=== PATIENT | male | born 1955 | race Hispanic/Latino ===

== ENCOUNTER 2017-03-11 02:05 | Inpatient (IN) | payer BC, SELFPAY ==
[2017-03-11] MEDS ORDERED: Ondansetron HCl/PF 4 MG/2 ML Vial ONE ×3 (02:33→06:41)
[2017-03-11] MEDS ORDERED: Morphine 4 MG/ML Carpuject ONE ×2 (02:33→03:53)
[2017-03-11] MEDS ORDERED: Nitroglycerin 2% Ointment 1 INCH/1 GM Packet ONE (02:50)
[2017-03-11] MEDS ORDERED: Aspirin 300 MG Suppository ONE (02:56)
[2017-03-11 03:05] LABS: #Eosinphils 0.4 thou/uL (0.0-0.7); #Lymphocytes 2.4 thou/uL (1.20-3.40); #Monocytes 0.5 thou/uL (0.11-0.59); #Neutrophils 6.9 thou/uL (1.40-6.50); %Basophils 0.5 % (0.0-1.0); %Eosinophils 3.8 % (0.0-10.0); %Lymphocytes 23.3 % (21.0-51.0); %Monocytes 4.6 % (0.0-10.0); %Neutrophils 67.9 % (42.0-75.0); Hemoglobin 13.9 g/dL (14.0-18.0); Mean Corpuscular HGB CONC 34.5 g/dL (32.0-36.0); Mean Corpuscular Hemoglobin 31.6 pg (27.0-31.0); Mean Corpuscular Volume 91.7 fl (80.0-94.0); Platelet Count 266 thou/uL (130-400); RBC Distribution Width 11.4 % (11.5-14.5); Red Blood Cell (RBC) Count 4.39 mill/uL (4.70-6.10); White Blood Cell (WBC) Count 10.1 thou/uL (4.8-10.8)
[2017-03-11 03:19] LABS: ALT (SGPT) 14 U/L (8-55); AST (SGOT) 19 U/L (5-34); Albumin 3.7 g/dL (3.4-4.8); Alkaline Phosphatase 62 U/L (40-150); Anion Gap 14 mmol/L (10-20); BUN (Urea Nitrogen) 16 mg/dL (8.4-25.7); Bilirubin, Total 0.4 mg/dL (0.2-1.2); Calc. Creatinine Clearance 0 mL/min (70-130); Calcium 8.8 mg/dL (7.8-10.44); Carbon Dioxide 17 mmol/L (23-31); Chloride 110 mmol/L (98-107); Estimated GFR-MDRD 77; Globulin 3.1 g/dL (2.4-3.5); Glucose 189 mg/dL (80-115); Lipase 28 U/L (8-78); Magnesium 2.1 mg/dL (1.6-2.6); Protein, Total 6.8 g/dL (5.8-8.1); Sodium 137 mmol/L (136-145)
[2017-03-11 03:23] LABS: CKMB 2.8 ng/mL (0-6.6); Troponin I Less than 0.010 ng/mL (< 0.028)
[2017-03-11 03:28] LABS: Prothrombin Time 13.7 SEC (12.0-14.7)
[2017-03-11 03:29] LABS: PTT 27.6 SEC (22.9-36.1)
[2017-03-11] MEDS ORDERED: Metoclopramide HCl 10 MG/2 ML VIAL ONE (03:46)
[2017-03-11] MEDS ORDERED: Metoclopramide HCl 10 MG/2 ML VIAL IVP PRN (07:03)
[2017-03-11] MEDS ORDERED: Ondansetron ODT 8 MG TAB SL PRN (07:03)
[2017-03-11] MEDS ORDERED: Ondansetron ODT 4 MG TAB PO PRN (07:03)
[2017-03-11] MEDS ORDERED: Nitroglycerin 0.4 MG TAB (25 Tab Bottle) PO PRN (07:03)
--- NOTE | 2017-03-11 07:24 | HP-2 ---
DATE OF ADMISSION: 03/11/2017 CODE STATUS: FULL. PRIMARY CARE PHYSICIAN: None. ATTENDING: Dr. Darek Steen. RESIDENT: Dr. Robbins. CHIEF COMPLAINT: Nausea and vomiting. HISTORY OF PRESENT ILLNESS: This is a 61-year-old male with no past medical history who presents to the emergency room by EMS for vomiting and dizziness. The patient was having a really bad headache, nausea and vomiting that woke him up from sleep around 2:00 a.m. He went to the restroom and had bee n vomiting for 20-30 minutes, and started feeling really dizzy, so he laid on the floor of the bathro om. His reports that he was sweating really badly. He also reports that his headache is "hurti ng all over" but he has no vision changes. His nausea and abdominal pain got better after having a b owel movement in the ER. The patient has been having regular bowel movements over the past several d ays, he has not been feeling constipated. The patient did not eat anything abnormal. The patient's ate the same thing as him yesterday and is not feeling sick. In the ER, the patient was given m orphine 4 mg IV x2, Reglan 10 mg IV, aspirin 300 mg per rectum, Nitro-Bid, Zofran 4 mg IV, 1 liter no rmal saline. PAST MEDICAL HISTORY: None. PAST SURGICAL HISTORY: Lithotripsy and right inguinal hernia repair. ALLERGIES: No known drug allergies. MEDICATIONS: None. FAMILY HISTORY: Mom has a DVT and dad has an aneurysm, unknown location. SOCIAL HISTORY: Denies tobacco or drug use. Used to drink 2-3 beers a day, but quit about 17 years ago. Patient is . REVIEW OF SYSTEMS: General: Denies fever. Positive for chills. Eyes: Negative for vision changes or eye pain. ENT: Negative for rhinorrhea, sore throat. Respiratory: Negative for cough, shortne ss of breath. Cardiovascular: Negative for chest pain, edema. Positive for palpitations. Gastroin testinal: Positive for nausea, vomiting, abdominal pain. Negative for diarrhea, constipation. Fabiola tourinary: Negative for dysuria, polyuria. Skin: Negative for rashes, lesions. Musculoskeletal: Negative for pain or tenderness. Neurologic: Negative for weakness, numbness, syncope. PHYSICAL EXAMINATION: VITAL SIGNS: Blood pressure 141/79, pulse 83, respiratory rate 16, temperature 97.6, pulse ox 94% on 2 liters. Current weight 99.79 kilograms. GENERAL: Drowsy, but easy to arouse, oriented x3, no acute distress, obese, appropriately interactiv e. EYES: PERRLA. Extraocular muscles intact. Mild horizontal nystagmus. Conjunctivae within normal l imits. ENT: Nasal mucosa and oropharynx within normal limits. NECK: Supple, no lymphadenopathy. CARDIOVASCULAR: Regular rate and rhythm. No murmurs, gallops. A 2+ radial and pedal pulses. RESPIRATORY: Normal effort, no retractions, clear to auscultation bilaterally. SKIN: Warm, dry. No cyanosis or lesions. ABDOMEN: Soft, nontender to palpation. Hypoactive bowel sounds. No mass or distention. EXTREMITIES: No cyanosis or edema. MUSCULOSKELETAL: Structure, tone within normal limits. NEUROLOGIC: No focal deficits. GCS 15. PSYCHIATRIC: Appropriate. LABORATORY DATA AND IMAGING: WBC 10.1, hemoglobin 13.9, hematocrit 40.2, platelets 266. Sodium 137, potassium 4.0, chloride 110, CO2 17, BUN 16, creatinine 0.99, GFR 77, glucose 189, calcium 8.8, AST 19, ALT 14, alkaline phosphatase 62, total bilirubin 0.4, magnesium 2.1, PT 13.7, INR 1.0, PTT 27.6, CK-MB 2.8, troponin less than 0.01, lipase 28. EKG showed normal sinus rhythm with ST elevation in V [address] depression in V4 and V5. Chest x-ray showed questionable mediastinum. Official read is pending. Head CT showed no acute hemorrhage or mass effect. Mild white matter changes. Officia l read is pending. CT aortic dissection protocol showed no dissection on preliminary read. Abdomina l x-ray showed stool in the rectum, no obstruction or free air. Official read is pending. ASSESSMENT AND PLAN: This is a 61-year-old male presents with: 1. Viral gastroenteritis. The patient has significant nausea, vomiting, and dizziness since 2:00 th is morning. The patient had a bowel movement that relieved some pain in the ED. The patient also morrison s a headache. The patient has a mild acute kidney injury and appears mildly dehydrated status post 1 liter normal saline in ED. Zofran does relieve the nausea some. The patient has some mild horizont al nystagmus on exam that could be a component of benign positional vertigo. We will treat with NS a t 150, meclizine as needed for dizziness, Zofran as needed for nausea, Reglan IV as needed for headac hes as well as Tylenol. We will evaluate further for the cause of dizziness once the patient is more stable and less pain. 2. ST elevation on EKG. Patient is not having any chest pain. There is no elevation of troponin an d CK-MB. Dr. Arita with Cardiology has been consulted and did not think that this was a ST elevatio n myocardial infarction at this time. We appreciate further recommendations from Cardiology. We shu l trend troponins, check fasting lipid panel. Monitor on telemetry. 3. Acute kidney injury. The patient appears mildly dehydrated from nausea, vomiting, and has receiv ed 1 liter normal saline bolus in ED. We will give NS at 150 mL per hour and monitor with repeat BMP in the morning. 4. Venous thromboembolism prophylaxis. Lovenox. DISPOSITION: Observation on telemetry. Symptomatic medications will be provided. History and physical exam as well as management discussed with Dr. Steen.
[2017-03-11 07:30] VITALS: BMI 36.1
[2017-03-11 07:43] LABS: Cardiac Risk 4.9 (Less than 4.5)
[2017-03-11 07:48] LABS: Troponin I 0.012 ng/mL (< 0.028)
[2017-03-11] MEDS ORDERED: Prevnar 13-Val Conj/PF 0.5 ML SYRINGE IM ONE (08:00)
--- NOTE | 2017-03-11 08:04 | CT ---
PRELIMINARY REPORT/[facility]/EMERGENCY AFTER HOURS PROCEDURE: EXAM: CT Head Without Intravenous Contrast CLINICAL HISTORY: 61 years old, male; Signs and symptoms; Dizziness TECHNIQUE: Axial computed tomography images of the head/brain without intravenous contrast. COMPARISON: No relevant prior studies available. FINDINGS: No definite acute skull fracture. Mild mucosal thickening in the maxillary sinuses Included paranasal sinuses otherwise appear essentially clear. No acute intracranial hemorrhage or mass effect. Ventricle size is normal for age. There is very mild, relatively symmetrical decreased attenuation in the periventricular white matter, likely from microvascular disease. No definite acute infarct by CT. MRI could be more sensitive/specific for an acute infarct if clinically indicated. IMPRESSION: No acute intracranial hemorrhage or mass effect. Very mild white matter changes, see above. No definite acute infarct by CT, see above. Thank you for allowing us to participate in the care of your patient. Dictated and Authenticated by: Vinod Rose MD 03/11/2017 3:34 AM Central Time ([place] & [place]) FINAL REPORT NONCONTRAST HEAD CT: HISTORY: Dizziness. Headache. Nausea. COMPARISON: 08/31/12. TECHNIQUE: Noncontrast head CT was performed from the skull base to the skull vertex. FINDINGS: This report is in agreement with the preliminary report by [facility]. No acute intracranial process. POS: [facility]
--- NOTE | 2017-03-11 08:09 | CT ---
PRELIMINARY REPORT/[facility]/EMERGENCY AFTER HOURS PROCEDURE: EXAM: CT Angiography Chest With Intravenous Contrast CLINICAL HISTORY: 61 years old, male; Pain; Chest pain; Type not specified; Abdominal pain; Generalized; Patient HX: R/ O dissection TECHNIQUE: Axial computed tomographic angiography images of the chest with intravenous contrast using pulmonary embolism protocol. CONTRAST: 100 mL of ISOVUE administered intravenously. COMPARISON: No relevant prior studies available. FINDINGS: Pulmonary arteries: Unremarkable. No pulmonary embolism. Aorta: Calcifications in the campos of the aorta and other arteries are consistent with atherosclerosi s. No thoracic aortic aneurysm or dissection is identified. Lungs: Unremarkable. Pleural space: Unremarkable. No significant effusion. No pneumothorax. Heart: There are coronary artery calcifications. Mediastinum: There is a small hiatal hernia. There is a small hiatal hernia. Bones/joints: No acute fracture. No dislocation. Soft tissues: Unremarkable. Lymph nodes: Unremarkable. No enlarged lymph nodes. IMPRESSION: 1. No thoracic aneurysm or dissection identified. 2. No significant abnormality identified. EXAM: CT Angiography Abdomen and Pelvis With Intravenous Contrast CLINICAL HISTORY: 61 years old, male; Pain; Chest pain; Type not specified; Abdominal pain; Generalized; Patient HX: R/ O dissection TECHNIQUE: Axial computed tomographic angiography images of the abdomen and pelvis with intravenous contrast. CONTRAST: 100 mL of ISOVUE administered intravenously. COMPARISON: No relevant prior studies available. FINDINGS: VASCULATURE: Aorta: No thoracic aortic aneurysm or dissection. Celiac trunk and mesenteric arteries: No acute findings. No occlusion or significant stenosis. Renal arteries: No acute findings. No occlusion or significant stenosis. Iliac arteries: No acute findings. No occlusion or significant stenosis. ABDOMEN: Liver: Unremarkable. No mass. Gallbladder and bile ducts: Unremarkable. No calcified stones. No ductal dilation. Pancreas: Unremarkable. No ductal dilation. No mass. Spleen: Unremarkable. No splenomegaly. Adrenals: Unremarkable. No mass. Kidneys and ureters: There are bilateral nonobstructing renal calculi. There is a 2.1 cm probable cys t in the right kidney. Stomach and bowel: Unremarkable. No obstruction. No mucosal thickening. Appendix: The appendix is unremarkable. PELVIS: Bladder: Unremarkable. No mass. Reproductive: Unremarkable as visualized. ABDOMEN and PELVIS: Intraperitoneal space: Unremarkable. No significant fluid collection. No free air. Bones/joints: No acute fracture. No dislocation. Soft tissues: A small hernia in the umbilical area contains fat. Lymph nodes: Unremarkable. No enlarged lymph nodes. IMPRESSION: 1. No abdominal aortic aneurysm or dissection identified. 2. Bilateral nonobstructing renal calculi. Thank you for allowing us to participate in the care of your patient. Dictated and Authenticated by: Kp Styles MD 03/11/2017 5:10 AM Central Time ([place] & [place]) FINAL REPORT CTA CHEST CTA ABDOMEN: HISTORY: Pain, nausea, and vomiting. COMPARISON: None. TECHNIQUE: CT angiogram chest and abdomen following the intravenous administration of contrast per dissection pr otocol. Three-D rendering was provided. FINDINGS/IMPRESSION: Findings and impression are concordant with the preliminary report. POS: [facility]
--- NOTE | 2017-03-11 08:21 | RAD ---
CHEST ONE VIEW: History: Nausea. Comparison: 2012 FINDINGS: Heart size is upper limits of normal although may be sequellae of technique. There is lung hypoinflat ion with vascular crowding. No pneumothorax. No large effusion. IMPRESSION: Lung hypoinflation and vascular crowding and enlargement of the cardiac silhouette. No acute intratho racic abnormality is appreciated. POS: [facility]
--- NOTE | 2017-03-11 08:44 | RAD ---
RADIOGRAPH ABDOMEN ONE VIEW: Date: 03-11-17 Time: 4:11 a.m. History: 61-year-old male with nausea. FINDINGS: The bowel gas pattern is nonobstructive. There are several calculi at several left renal calices. The re are fewer calculi in the right kidney. No evidence of organomegaly. IMPRESSION: 1. No evidence of bowel obstruction. 2. Bilateral nephrolithiasis (calculus of kidney). POS: [facility]
[2017-03-11] MEDS: Sodium Chloride 0.9% 1,000 ML IV SCH ×4 (09:50→21:18)
[2017-03-11] MEDS: Enoxaparin Sodium 40 MG/0.4 ML SYRINGE SC SCH (09:50)
[2017-03-11 10:38] LABS: Troponin I 0.036 ng/mL (< 0.028)
--- NOTE | 2017-03-11 12:23 | ADD-PRG ---
DATE OF SERVICE: 03/11/2017 I have examined Mr. Gasca and I have discussed the H&P with Dr. Robbins. I agree with her assessment and plan. Briefly, Mr. Gasca is a 61-year-old man who became very vertiginous last night after arising from bed. He has significant episodes of nausea and vomiting, and was found "down" by his . EMS was called and he was transported to her our ER. On neurological exam, he has no focal deficits. His head impulse test is normal which, however, can be consistent with a cerebellar stroke. Nystagmus is horizontal only. His Skew test is negative. He is having a severe headache despite a negative head CT. I would recommend proceeding with an MRI to obtain a better view of the cerebellum given that this is a significant headache in a gentleman not prone to headaches accompanied by vertigo. We would also recommend checking a sed rate and CRP. Otherwise, clinically, he is stable though any movement causes vertigo and nausea. ROMAN
[2017-03-11] MEDS ORDERED: ISOVUE-370 76%-LOCM 1 ML ONE (13:41)
[2017-03-11] MEDS: Nitroglycerin 2% Ointment 1 INCH/1 GM Packet TOP SCH ×2 (15:21→21:09)
--- NOTE | 2017-03-11 15:58 | MRI ---
EXAM: BRAIN MRI WITHOUT CONTRAST: HISTORY: Cerebellar stroke. Dizziness. Headache. Nausea. COMPARISON: None. CORRELATION: Noncontrast head CT 03/11/17. TECHNIQUE: Brain MRI is performed without intravenous Gadolinium administration. Multisequential, multiplanar i maging is performed. FINDINGS: No hemorrhage on the axial gradient echo sequence. No parenchymal mass, mass effect, or midline shift. Brain volume is age appropriate. In the cerebru m, cortical anand-white matter differentiation is essentially preserved. The ventricles and sulci are patent and symmetric. There are T2 FLAIR white matter hyperintensities due to chronic small-vessel ischemic change. There is restricted diffusion involving both cerebellar hemispheres, right greater than left. Additi onal areas of restricted diffusion are noted in the medial left occipital and frontal lobes as well a s the bilateral posterior occipital lobes. Multifocal location does raise the possibility of an embo lic phenomenon. Midline brain parenchymal structures are unremarkable. Calvarium has a normal T1 marrow signal inten sity. IMPRESSION: Multifocal infarcts. The cerebral infarcts have a cortical location suggesting embolic phenomenon. The largest infarct is in the right cerebellar hemisphere. POS: [facility]
[2017-03-11] MEDS: Acetaminophen 325 MG TAB PO PRN (18:20)
[2017-03-11] MEDS ORDERED: Ondansetron HCl/PF 4 MG/2 ML Vial IVP PRN (19:23)
--- NOTE | 2017-03-11 20:45 | HP ---
DATE OF ADMISSION: 03/11/2017 CODE STATUS: FULL. PRIMARY CARE PHYSICIAN: Lillie dolan. CHIEF COMPLAINT: Dizziness, new onset. HISTORY OF PRESENT ILLNESS: A 61-year-old male who was found by his approximately 2:00 a.m. after he woke up from sleep, had severe vertigo, went to the bathroom and had marked emesis. found him stooped over the toilet and he had fallen to the side. He was very diaphoretic and EMS was called. He was seen in this emergency room and admitted for further care and evaluation. ALLERGIES: None known. MEDICATIONS: None. SOCIAL HISTORY: He is a nonsmoker, nondrinker. He does have a history of approximately 17 years ago drinking 2-3 beers a day. He has been . This is his third marriage. He has been , currently 27 years. No children from this marriage. He does have 3 siblings from prior marriages. Prior hospitalization, has been admitted 09/2012 with nephrolithiasis. He did have a stent placement. There is a questionable history of having been admitted with a chest pain; however, this is not substantiated by review of [place] records. Prior surgery notable for the cystoscope and stent placement. FAMILY HISTORY: Mother at age 72. She is diabetic. His father at age of 74 due to have heart disease. REVIEW OF SYSTEMS: Constitutional: He has had recent chills and the above-mentioned vertigo and has also complained of a severe frontal headache. Skin: Negative. Psychiatric : Denies any mental illness. Cardiovascular: Questionable evaluation for heart disease, 2012, has been advised to take aspirin daily in the past. He denies any prior heart attack, history of heart murmur or hypertension. Pulmonary: He denied any shortness of breath, recent cough, apnea or lung disease. Gastrointestinal: Recent nausea and vomiting, loose stool. Urological: As above, history of kidney stones with a ureteral stent placement in the past. Neurological: New onset severe frontal headache. He denies any tinnitus, hearing loss, weakness or paresthesias of extremities. Marked vertigo since last night. Musculoskeletal: No degenerative joint disease. No swollen joints. No joint pain. Denies any trauma or broken bones. PHYSICAL EXAMINATION: GENERAL: He is alert, quite somnolent, sitting still in bed. Has marked reproduction of vertigo with rising. His weight is 99.7 kilos. VITAL SIGNS: His temperature is 97.6, blood pressure 141/79, pulse is 83 and regular, respirations are 16, O2 sat on room air is 94%. HEENT: Head is atraumatic, normocephalic. Pupils are reactive. He does have horizontal nystagmus. His throat is adequately hydrated. TMs clear. The patient has vertigo testing cannot rule out central etiology. NECK: Supple, no JVD. CARDIOVASCULAR: Normal sinus rhythm. LUNGS: Clear to auscultation. ABDOMEN: Soft. No guarding, rebound or tenderness. GENITOURINARYA: No hernias. MUSCULOSKELETAL: No swelling. No tenderness. Moves all extremities well. EXTREMITIES: No cyanosis, clubbing or edema. SKIN: Intact. NEUROLOGIC: notable for: As above notable unidirectional horizontal nystagmus.thrust test with fixation does not rule out central etiology no focal signs LABORATORY DATA: WBC 10.1, H&H 13.9 and 40, platelets 266,000. Sodium 134, potassium 4, chloride 110, bicarbonate 17, BUN 16, creatinine 0.99, blood sugar 189. Troponin is 0.01. EKG shows ST elevation in V1, V2. No other ischemic changes. The patient in the emergency room had CT imaging of his head which was a brain CT which was negative for any mass effect hemorrhagic CVA. Chest x- ray is notable for a wide mediastinum. He underwent a CT dissection protocol which was negative. ASSESSMENT: New onset severe headache with vertigo, cannot rule out central etiology. PLAN: The patient will be admitted. Nonspecific ST-T wave changes. He will have serial troponins and have a further diagnostic imaging, rule out a central etiology of new onset severe vertigo and headache. Consider MRI. MTDD
[2017-03-11] MEDS: Atorvastatin Calcium 40 MG TAB PO SCH (21:18)
--- NOTE | 2017-03-12 00:47 | CON ---
DATE OF CONSULTATION: 03/11/2017 REFERRING PHYSICIAN: Dr. Rick Last. REASON FOR CONSULTATION: Cerebellar stroke. HISTORY OF PRESENT ILLNESS: Mr. Gasca is a pleasant 61-year-old male who has been consult ed for evaluation of cerebellar stroke. The patient reports that this morning around 2:00 a.m., he w renetta up to go to bathroom, at that time, he suddenly passed out. Next thing, he knows he is in the em ergency room. He does not recall what transpired the passing out spell. He did not have any chest p ain, no palpitation at that time. He reports that since being here, he has difficulty with getting u p as he tends to get vertigo-type sensation and becomes nauseous. He denies any headache, chest pain , palpitations, lightheadedness, or dizziness. PAST MEDICAL HISTORY: None significant. PAST SURGICAL HISTORY: None significant. SOCIAL HISTORY: He denies smoking or alcohol use. He denies illicit drug use. He is . CURRENT MEDICATIONS: Please review MAR. ALLERGIES: No known drug allergies. FAMILY HISTORY: Noncontributory. REVIEW OF SYSTEMS: As mentioned in the HPI, otherwise negative. PHYSICAL EXAMINATION: VITAL SIGNS: Blood pressure of 128/66, pulse of 78, temperature of 98.7, respirations of 16, O2 sats 95% on room air. GENERAL: Well-developed, well-nourished male in no apparent distress. RESPIRATORY: Clear to auscultation bilaterally. CARDIOVASCULAR: Regular rate and rhythm. NEUROLOGIC: Mental status: The patient is awake, alert, oriented x3. Speech and language: Fluent speech. Cranial nerves: Pupils are 3 mm and reactive. Visual arroyo are intact. Extraocular muscl es are intact. He does have right and gaze horizontal nystagmus. Face appears symmetric. Tongue an d uvula are midline. Motor exam showed normal tone and bulk with a 5/5 strength in both upper and lo wer extremities. Sensation is intact and symmetric. Deep tendon reflexes 2+ reflexes in both upper and lower extremities. Coordination: He has a mild dysmetria noted on [id number] on the rig ht side. LABORATORY DATA: Reviewed, which included CBC, CMP, lipid profile, troponin which is significant for hemoglobin 13.9, hematocrit of 40.2, total cholesterol 185, LDL of 124, HDL of 38, triglycerides ___ __. IMAGING STUDIES: MRI brain without contrast was reviewed, which showed acute right cerebellar ischem ic infarct. IMPRESSION: 1. Acute right cerebellar ischemic infarct. 2. Ataxia, due to #1. ASSESSMENT AND PLAN: Mr. Gasca is a pleasant 61-year-old male who presented with the epis ode of passing out along with the vertigo and ataxia. His exam does show dysmetria on [id number] nger on the right side. His MRI does show acute right cerebellar ischemic infarct. At this time, I would recommend obtaining CT angiogram of the head and neck and echocardiogram. I agree with continu ing on aspirin 325 mg daily for secondary stroke prevention. He will also benefit from Lipitor 40 mg , and continue PT, OT. Thank you for the consultation.
[2017-03-12] MEDS: Nitroglycerin 2% Ointment 1 INCH/1 GM Packet TOP SCH ×3 (05:19→20:20)
[2017-03-12 06:05] LABS: Anion Gap 9 mmol/L (10-20); BUN (Urea Nitrogen) 12 mg/dL (8.4-25.7); Calc. Creatinine Clearance 161 mL/min (70-130); Calcium 8.7 mg/dL (7.8-10.44); Carbon Dioxide 23 mmol/L (23-31); Chloride 112 mmol/L (98-107); Estimated GFR-MDRD Greater than 90; Glucose 96 mg/dL (80-115); Potassium 3.8 mmol/L (3.5-5.1); Sodium 140 mmol/L (136-145)
[2017-03-12] MEDS: Meclizine HCl 12.5 MG TAB PO PRN (08:41)
[2017-03-12] MEDS: Enoxaparin Sodium 40 MG/0.4 ML SYRINGE SC SCH (09:45)
[2017-03-12] MEDS: Aspirin 325 MG TAB PO SCH (09:45)
[2017-03-12] MEDS: Sodium Chloride 0.9% 1,000 ML IV SCH ×2 (09:52→14:47)
--- NOTE | 2017-03-12 11:03 | CT ---
CT ANGIOGRAM OF HEAD CT ANGIOGRAM OF NECK: Date: 03/12/17 HISTORY: Multifocal infarcts noted on recent MRI. Evaluate for carotid and vertebral artery disease. COMPARISON: None. TECHNIQUE: CT angiogram of the head and neck are performed in the axial plane. Sagittal and coronal three-dimens ional reformatted images are submitted for interpretation. FINDINGS: NONCONTRAST HEAD CT: No parenchymal hemorrhage. No extra-axial hematoma. No midline shift. Basilar cisterns are patent. Br ain volume is age-appropriate. Cortical anand-white matter differentiation is preserved in the suprate ntorial brain. There is evidence of hypodensity in the medial right cerebellar hemisphere compatible with area of infarct noted on recent MRI. Calvarium is intact. Adequate aeration of the mastoid air cells. There is sinus disease. Postcontrast head CT does not dem onstrate any abnormal enhancement of the brain parenchyma. There is symmetric attenuation of the optic nerves and ocular rectus muscles. Both ocular lenses are appropriately intact. Retrobulbar fat is preserved. Aerodigestive tract is patent. No mucosal abnormalities. The midline fatty raphe of the tongue is pre served. Evaluation limited by dental amalgam artifact. There is evidence of periodontal disease. Epig lottis has a normal caliber. Preepiglottic fat is preserved. Symmetric attenuation of the submandibul ar glands. Left parotid gland is absent. Right parotid gland is unremarkable. Symmetric attenuation of sternocleidomastoid muscles. Thyroid gland is unremarkable. No evidence of lymphadenopathy by size criteria. Cervical spine demonstrates preservation of vertebral body height. There are varying degrees of centr al canal stenosis and foraminal narrowing. Chronic changes in the lung apices are noted. Focal opacity in the right upper lobe, incompletely jono luated. Nonemergent chest CT. CT ANGIOGRAM: The aortic arch has a normal caliber. There is atherosclerosis of the aortic knob and descending thor acic aorta. Right Carotid: The right carotid artery origin has appropriate enhancement and luminal diameter. The right innominate artery, common carotid artery, carotid bifurcation, and internal carotid artery hav e appropriate enhancement and luminal diameter. Minimal atherosclerotic disease in right carotid bifu rcation. Left Carotid: The left carotid artery origin has appropriate enhancement and luminal diameter. The l eft common carotid artery, carotid bifurcation, and internal carotid artery have appropriate enhancem ent and luminal diameter. There is mild to moderate atherosclerotic disease in the left carotid bifur cation and proximal left internal carotid artery. Limited evaluation of both vertebral artery origins. There may be mild atherosclerotic disease involv ing the origin and proximal aspect of the right vertebral body. Short segment severe stenosis with la ck of contrast enhancement in the proximal right vertebral artery is suggested. The remainder of the right vertebral artery and left vertebral artery are unremarkable. CT ANGIOGRAM [place] [place]: The distal cervical and intracranial internal carotid artery have symmetric enhancement and luminal d iameter. Anterior Circulation: Symmetric enhancement of the A1 segments and proximal A2 segments. There is sh ort segment severe stenosis involving the origin of the right M1 segment. The mid to distal right M1 segment is unremarkable. There is mild irregularity involving the proximal left M1 segment. Mid to di stal left M1 segment is unremarkable. Symmetric enhancement of the proximal MCA distribution. Posterior Circulation: Intracranial vertebral artery have symmetric enhancement and luminal diameter . Left and right PICA artery origins are unremarkable. Basilar artery has appropriate enhancement and luminal diameter. The left and right P1 segments have symmetric enhancement and luminal diameter. IMPRESSION: 1. Severe stenosis involving the origin/proximal right M1 segment. Mild stenosis involving the proxi mal left M1 segment. 2. No significant stenosis of either carotid artery based upon NASCET criteria. 3. Short segment severe stenosis involving the proximal right vertebral artery. POS: OSBALDO
--- NOTE | 2017-03-12 11:58 | PDOC.FM ---
- Subjective Subjective: Pt had no acute events overnight. Reports his dizziness and nausea/vomiting have improved. Denies cp, sob. - Objective Vital Signs & Weight: Vital Signs (12 hours) Temp Pulse Resp BP Pulse Ox 03/12/17 11:52 97.5 F L 74 16 136/72 99 03/12/17 08:00 98.6 F 69 18 139/81 97 03/12/17 03:16 99.2 F 72 16 119/72 96 Weight Weight 117.651 kg I&O: 03/11/17 03/12/17 03/13/17 06:59 06:59 06:59 Intake Total 60 Output Total 120 Balance -60 Result Diagrams: 03/11/17 02:55 03/12/17 05:19 Phys Exam - Physical Examination Constitutional: NAD HEENT: PERRLA Neck: no nodes, no JVD Respiratory: no wheezing, no rales, no rhonchi, clear to auscultation bilateral Cardiovascular: RRR, no significant murmur, no rub Gastrointestinal: soft, non-tender, no distention, positive bowel sounds Musculoskeletal: no edema, pulses present Neurological: non-focal, normal sensation, moves all 4 limbs horizontal nystagmus Psychiatric: normal affect Dx/Plan (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
--- NOTE | 2017-03-12 12:47 | ADD-PRG ---
DATE OF SERVICE: 03/12/2017 This is an addendum to the note of Dr. Rick Last. Mr. Gasca looks and feels much better this morning. His vertigo is improving. His headache has gr eatly improved. He has been seen by the neurologist, who has ordered a CTA of the head and neck. CT A does show severe stenosis involving the origin and proximal segment of the right M1 of the MCA dist ribution. There is also a short segment of severe stenosis involving the proximal right vertebral ar kannan. We have instituted medical management with aspirin and atorvastatin. His blood pressure is we ll controlled. We have instituted PT, OT. Clinically improved.
[2017-03-12] MEDS: Atorvastatin Calcium 40 MG TAB PO SCH (20:20)
[2017-03-13 05:12] LABS: Anion Gap 9 mmol/L (10-20); BUN (Urea Nitrogen) 13 mg/dL (8.4-25.7); Calc. Creatinine Clearance 151 mL/min (70-130); Calcium 8.7 mg/dL (7.8-10.44); Carbon Dioxide 25 mmol/L (23-31); Chloride 110 mmol/L (98-107); Estimated GFR-MDRD Greater than 90; Glucose 87 mg/dL (80-115); Potassium 3.8 mmol/L (3.5-5.1); Sodium 140 mmol/L (136-145)
[2017-03-13] MEDS: Nitroglycerin 2% Ointment 1 INCH/1 GM Packet TOP SCH ×3 (05:39→20:07)
[2017-03-13] MEDS: Aspirin 325 MG TAB PO SCH (08:38)
[2017-03-13] MEDS: Enoxaparin Sodium 40 MG/0.4 ML SYRINGE SC SCH (08:38)
--- NOTE | 2017-03-13 11:26 | PDOC.FM ---
- Subjective Subjective: No acute events overnight. Pt reports he is able to ambulate and nausea, vomiting and dizziness have subsided. He has remained in NSR throughout his time on the monitor. - Objective Vital Signs & Weight: Vital Signs (12 hours) Temp Pulse Resp BP Pulse Ox 03/13/17 08:00 98.3 F 71 18 167/83 H 95 03/13/17 04:00 98.0 F 66 16 146/87 H 95 03/13/17 00:00 98.3 F 70 16 147/81 H 93 L Weight Weight 117.072 kg I&O: 03/12/17 03/13/17 03/14/17 06:59 06:59 06:59 Intake Total 60 595 Output Total 120 850 Balance -60 -255 Result Diagrams: 03/11/17 02:55 03/13/17 04:34 Phys Exam - Physical Examination Constitutional: NAD HEENT: PERRLA, sclera anicteric, oral pharynx no lesions Neck: no nodes, no JVD Respiratory: no wheezing, no rales, no rhonchi, clear to auscultation bilateral Cardiovascular: RRR, no significant murmur, no rub Gastrointestinal: soft, non-tender, no distention, positive bowel sounds Musculoskeletal: no edema, pulses present Neurological: non-focal, normal sensation, moves all 4 limbs CN II-XII intact Psychiatric: normal affect Skin: no rash Dx/Plan (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
[2017-03-13] MEDS ORDERED: Metoclopramide HCl 10 MG TAB PO PRN (11:28)
--- NOTE | 2017-03-13 11:30 | PRG ---
Mr. Gasca looks and feels much better this morning. He is able to ambulate. He is on his aspirin and atorvastatin. We will have a final discussion with Dr. López in anticipating of discharging Mr. Jayna scruggs today. We will try to proceed with an event recorder given the embolic stroke.
[2017-03-13] MEDS ORDERED: Amlodipine 5 MG TAB PO SCH (16:45)
[2017-03-13] MEDS: hydrALAZINE 20 MG/ML VIAL SLOW IVP PRN (18:38)
[2017-03-13] MEDS: Atorvastatin Calcium 40 MG TAB PO SCH (20:06)
[2017-03-13] MEDS ORDERED: Polyethylene Glycol 3350 17 GM Packet PO SCH (21:00)
[2017-03-14] MEDS: hydrALAZINE 20 MG/ML VIAL SLOW IVP PRN ×2 (00:46→19:55)
[2017-03-14] MEDS: Nitroglycerin 2% Ointment 1 INCH/1 GM Packet TOP SCH ×3 (05:31→20:02)
[2017-03-14 05:56] LABS: Anion Gap 12 mmol/L (10-20); BUN (Urea Nitrogen) 12 mg/dL (8.4-25.7); Calc. Creatinine Clearance 153 mL/min (70-130); Calcium 9.4 mg/dL (7.8-10.44); Carbon Dioxide 23 mmol/L (23-31); Chloride 107 mmol/L (98-107); Estimated GFR-MDRD Greater than 90; Glucose 99 mg/dL (80-115); Potassium 3.7 mmol/L (3.5-5.1); Sodium 138 mmol/L (136-145)
--- NOTE | 2017-03-14 06:37 | PDOC.FM ---
- Subjective Subjective: Pt reports having headache and feeling SOB this morning. Denies any chest pain or pain overall. Denies any fever or chills. Reports being a little dizzy this morning. Has not gotten medicine for headache yet at this time. No other concerns at this time. - Objective MAR Reviewed: Yes Vital Signs & Weight: Vital Signs (12 hours) Temp Pulse Resp BP Pulse Ox 03/14/17 04:00 97.9 F 69 16 152/89 H 96 03/14/17 01:15 150/72 H 03/14/17 00:00 98 F 81 20 169/89 H 96 03/13/17 20:20 99.2 F 81 20 96 03/13/17 20:10 79 161/83 H 03/13/17 20:00 99.2 F 81 20 173/77 H 96 03/13/17 19:04 156/81 H 03/13/17 18:38 69 Weight Weight 117.48 kg I&O: 03/12/17 03/13/17 03/14/17 06:59 06:59 06:59 Intake Total 60 595 670 Output Total 120 850 Balance -60 -255 670 Result Diagrams: 03/11/17 02:55 03/14/17 04:57 Radiology Reviewed by me: Yes <Enrrique Baptiste - Last Filed: 03/14/17 07:48> - Objective Vital Signs & Weight: Vital Signs (12 hours) Temp Pulse Resp BP BP Pulse Ox 03/14/17 12:34 152/75 H 03/14/17 11:05 98.3 F 92 18 181/88 H 92 L 03/14/17 08:12 74 130/71 03/14/17 08:00 98.0 F 74 18 98 03/14/17 07:12 98 F 74 20 130/71 98 03/14/17 04:00 97.9 F 69 16 152/89 H 96 Weight Weight 117.48 kg I&O: 03/13/17 03/14/17 03/15/17 06:59 06:59 06:59 Intake Total 595 670 Output Total 850 Balance -255 670 Result Diagrams: 03/11/17 02:55 03/14/17 04:57 <Susan Arreola - Last Filed: 03/14/17 14:01> Phys Exam - Physical Examination Constitutional: NAD HEENT: PERRLA, moist MMs Neck: no nodes, no JVD, supple, full ROM Respiratory: no wheezing, no rales, no rhonchi, clear to auscultation bilateral Cardiovascular: RRR, no significant murmur, no rub Gastrointestinal: soft, non-tender, no distention, positive bowel sounds Musculoskeletal: no edema, pulses present Neurological: non-focal, normal sensation, moves all 4 limbs Lymphatic: no nodes Psychiatric: normal affect, A&O x 3 Skin: no rash, normal turgor, cap refill <2 seconds <Enrrique Baptiste - Last Filed: 03/14/17 07:48> Dx/Plan (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 Has mutliple emboli on CTA -TTE showed normal ef mild diastolic dysfunction and mild MR and TR -Will order IGOR to evaluate for source of multiple emboli -Neurology consulted, appreciate recs -Continue High dose aspirin and started on a Statin -Will continue to work with PT/OT and follow recs HTN -Started on amlodipine. -BP elevated. Will adjust medication at this time <Enrrique Baptiste - Last Filed: 03/14/17 07:48> Attending Addendum - Attending Addendum I personally evaluated the patient and discussed the management with Dr. Baptiste. I agree with the History, Examination, Assessment and Plan documented above with any addition or exceptions noted below. The patient's dizziness has improved with meclizine. Patient's bp meds beingn adjusted. Waiting on IGOR and bubble study on Thursday. <Susan Arreola - Last Filed: 03/14/17 14:01>
[2017-03-14] MEDS: Acetaminophen 325 MG TAB PO PRN (08:12)
[2017-03-14] MEDS: Aspirin 325 MG TAB PO SCH (08:12)
[2017-03-14] MEDS: Enoxaparin Sodium 40 MG/0.4 ML SYRINGE SC SCH (08:13)
[2017-03-14] MEDS ORDERED: Amlodipine 5 MG TAB PO SCH (09:00)
--- NOTE | 2017-03-14 18:07 | EKG ---
Test Reason : Blood Pressure : / mmHG Vent. Rate : 080 BPM Atrial Rate : 080 BPM P-R Int : 154 ms QRS Dur : 100 ms QT Int : 406 ms P-R-T Axes : 056 030 056 degrees QTc Int : 468 ms Normal sinus rhythm ST elevation consider anterior injury or acute infarct ST elevation V1, V2 Abnormal ECG Confirmed by ALYX HILL D.O. ([id number]), book editor CHECO BRADFORD ([id number]) on 03/14/2017 6:07:02 PM Referred By: SERGIO Confirmed By:ALYX HILL D.O.
--- NOTE | 2017-03-14 18:11 | EKG ---
Test Reason : Blood Pressure : / mmHG Vent. Rate : 083 BPM Atrial Rate : 083 BPM P-R Int : 146 ms QRS Dur : 102 ms QT Int : 408 ms P-R-T Axes : 035 033 171 degrees QTc Int : 479 ms Normal sinus rhythm ST elevation consider anterior injury or acute infarct ST elevation V1-V2 ST depresiom V4, V5, I Abnormal ECG No changes Confirmed by ALYX HILL D.O. ([id number]), staff editor CHECO BRADFORD ([id number]) on 03/14/2017 6:11:08 PM Referred By: Confirmed By:ALYX HILL D.O.
[2017-03-14] MEDS: Meclizine HCl 12.5 MG TAB PO PRN (19:53)
[2017-03-14] MEDS: Atorvastatin Calcium 40 MG TAB PO SCH (19:53)
[2017-03-15] MEDS: Nitroglycerin 2% Ointment 1 INCH/1 GM Packet TOP SCH ×3 (05:23→20:52)
[2017-03-15 05:52] LABS: Anion Gap 11 mmol/L (10-20); BUN (Urea Nitrogen) 16 mg/dL (8.4-25.7); Calc. Creatinine Clearance 155 mL/min (70-130); Calcium 9.1 mg/dL (7.8-10.44); Carbon Dioxide 23 mmol/L (23-31); Chloride 108 mmol/L (98-107); Estimated GFR-MDRD Greater than 90; Glucose 95 mg/dL (80-115); Potassium 3.6 mmol/L (3.5-5.1); Sodium 138 mmol/L (136-145)
--- NOTE | 2017-03-15 06:32 | PDOC.FM ---
- Subjective Subjective: Pt reports doing well. Said he slept well overnight. Denies any acute events overnight. Denies any headache or dizziness. denies fever chills. Denies numbness or tingling. Says he got up and walked around yesterday and denies any wobbling or imbalance problems. Denies any other concerns or complaints at this time. - Objective MAR Reviewed: Yes Vital Signs & Weight: Vital Signs (12 hours) Temp Pulse Resp BP Pulse Ox 03/15/17 03:56 92 L 03/15/17 03:50 98.5 F 84 18 167/84 H 94 L 03/14/17 23:53 98.3 F 89 22 H 156/84 H 95 03/14/17 21:15 157/89 H 03/14/17 20:45 98.2 F 78 20 96 03/14/17 20:02 98.2 F 78 20 173/97 H 96 Weight Weight 117.526 kg I&O: 03/13/17 03/14/17 03/15/17 06:59 06:59 06:59 Intake Total 595 670 640 Output Total 850 Balance -255 670 640 Result Diagrams: 03/11/17 02:55 03/15/17 05:06 Radiology Reviewed by me: Yes (No new imaging to review) <Enrrique Baptiste - Last Filed: 03/15/17 07:41> - Objective Vital Signs & Weight: Vital Signs (12 hours) Temp Pulse Resp BP BP Pulse Ox 03/15/17 12:00 98.7 F 75 16 138/85 95 03/15/17 08:43 84 159/84 H 03/15/17 08:00 98.4 F 84 18 159/94 H 97 03/15/17 03:56 92 L 03/15/17 03:50 98.5 F 84 18 167/84 H 94 L Weight Weight 117.526 kg I&O: 03/14/17 03/15/17 03/16/17 06:59 06:59 06:59 Intake Total 670 640 Balance 670 640 Result Diagrams: 03/11/17 02:55 03/15/17 05:06 <Susan Arreola - Last Filed: 03/15/17 13:58> Phys Exam - Physical Examination Constitutional: NAD HEENT: PERRLA, moist MMs Neck: no nodes, no JVD, supple, full ROM Respiratory: no wheezing, no rales, no rhonchi, clear to auscultation bilateral Cardiovascular: RRR, no significant murmur, no rub Gastrointestinal: soft, non-tender, no distention, positive bowel sounds Musculoskeletal: no edema, pulses present Neurological: non-focal, normal sensation, moves all 4 limbs Lymphatic: no nodes Psychiatric: normal affect, A&O x 3 Skin: no rash, normal turgor <Enrrique Baptiste - Last Filed: 03/15/17 07:41> Dx/Plan (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 Has mutliple emboli on CTA -TTE showed normal ef mild diastolic dysfunction and mild MR and TR -MRI shows Embolic nature of stroke, worst sign of infarction in R. cerebellar area.. - IGOR to evaluate for source of multiple emboli -Neurology consulted, appreciate recs -Continue High dose aspirin and started on a Statin -Will continue to work with PT/OT and follow recs -Has graduated to Walking program. Doing well from their standpoint. HTN -Started on amlodipine. -BP elevated. Will continue to adjust medication. <Enrrique Baptiste - Last Filed: 03/15/17 07:41> Attending Addendum - Attending Addendum I personally evaluated the patient and discussed the management with Dr. Baptiste. I agree with the History, Examination, Assessment and Plan documented above with any addition or exceptions noted below. The patient is feeling better. He no longer has a headache or dizziness. Will wait on IGOR with bubble study tomorrow. <Susan Arreola - Last Filed: 03/15/17 13:58>
[2017-03-15] MEDS: Aspirin 325 MG TAB PO SCH (08:43)
[2017-03-15] MEDS: Amlodipine 10 MG TAB PO SCH (08:43)
[2017-03-15] MEDS: Enoxaparin Sodium 40 MG/0.4 ML SYRINGE SC SCH (08:44)
[2017-03-15] MEDS: Atorvastatin Calcium 40 MG TAB PO SCH (20:50)
[2017-03-16 06:00] LABS: Anion Gap 10 mmol/L (10-20); BUN (Urea Nitrogen) 18 mg/dL (8.4-25.7); Calc. Creatinine Clearance 143 mL/min (70-130); Carbon Dioxide 23 mmol/L (23-31); Chloride 109 mmol/L (98-107); Estimated GFR-MDRD 86; Glucose 93 mg/dL (80-115); Potassium 3.8 mmol/L (3.5-5.1); Sodium 138 mmol/L (136-145)
[2017-03-16] MEDS: Nitroglycerin 2% Ointment 1 INCH/1 GM Packet TOP SCH (06:04)
--- NOTE | 2017-03-16 08:25 | PDOC.FM ---
- Subjective Subjective: Patient resting comfortably this AM. He reports that his N/V has improved, but he still feels a little nauseous. He also reports that his dizziness and headache have resolved. He denies any chest pain, SOB. - Objective MAR Reviewed: Yes Vital Signs & Weight: Vital Signs (12 hours) Temp Pulse Resp BP Pulse Ox 03/16/17 07:50 98.5 F 67 14 97 03/16/17 07:13 97.9 F 74 14 149/83 H 95 03/16/17 06:15 98.5 F 67 14 119/82 97 Weight Weight 87.453 kg I&O: 03/15/17 03/16/17 03/17/17 06:59 06:59 06:59 Intake Total 640 540 Balance 640 540 Result Diagrams: 03/11/17 02:55 03/16/17 05:19 <Melonie Robbins - Last Filed: 03/16/17 08:23> - Objective Vital Signs & Weight: Vital Signs (12 hours) Temp Pulse Resp BP BP Pulse Ox 03/16/17 11:10 97.5 F L 84 14 153/86 H 93 L 03/16/17 11:08 97 03/16/17 08:29 67 149/83 H 03/16/17 07:50 98.5 F 67 14 97 03/16/17 07:13 97.9 F 74 14 149/83 H 95 03/16/17 06:15 98.5 F 67 14 119/82 97 Weight Weight 87.453 kg I&O: 03/15/17 03/16/17 03/17/17 06:59 06:59 06:59 Intake Total 640 540 Balance 640 540 Result Diagrams: 03/11/17 02:55 03/16/17 05:19 <Ananth Ocampo - Last Filed: 03/16/17 12:17> Phys Exam - Physical Examination Constitutional: NAD HEENT: moist MMs Respiratory: no wheezing, no rales, no rhonchi, clear to auscultation bilateral Cardiovascular: RRR, no significant murmur, no rub Gastrointestinal: soft, non-tender, no distention, positive bowel sounds Musculoskeletal: no edema, pulses present Neurological: normal sensation, moves all 4 limbs horizontal nystagmus, worse to the right Psychiatric: normal affect, A&O x 3 <Melonie Robbins - Last Filed: 03/16/17 08:23> Dx/Plan (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 Has mutliple emboli on CTA/MRI -TTE showed EF 55-60%, mild diastolic dysfunction and mild MR and TR -MRI shows Embolic nature of stroke, worst sign of infarction in R. cerebellar area. -Neurology consulted, appreciate recs -Continue High dose aspirin and started on a Statin -Will continue to work with PT/OT and follow recs -Has graduated to Walking program. Doing well from their standpoint. -Cardiology has been consulted for IGOR with bubble study and possible loop recorder, appreciate recs. HTN -Started on amlodipine. -Will monitor BP and adjust as needed <Melonie Robbins - Last Filed: 03/16/17 08:23> Attending Addendum - Attending Addendum I personally evaluated the patient and discussed the management with Dr. Robbins. I agree with the History, Examination, Assessment and Plan documented above with any addition or exceptions noted below. Patient doing well symptomatically and is able to ambulate well. We are awaiting possible IGOR with agitated saline study to determine the cause of his embolic CVA. Continue therapy while here, hopeful for discharge in next 1-2 days. Continue ASA and statin. <Ananth Ocampo - Last Filed: 03/16/17 12:17>
[2017-03-16] MEDS: Aspirin 325 MG TAB PO SCH (08:29)
[2017-03-16] MEDS: Amlodipine 10 MG TAB PO SCH (08:29)
[2017-03-16] MEDS: Enoxaparin Sodium 40 MG/0.4 ML SYRINGE SC SCH (08:29)
[2017-03-16] MEDS ORDERED: Nitroglycerin 2% Ointment 1 INCH/1 GM Packet TOP PRN (10:54)
[2017-03-16] MEDS: Atorvastatin Calcium 40 MG TAB PO SCH (20:44)
--- NOTE | 2017-03-16 23:37 | CON ---
DATE OF CONSULTATION: 03/16/2017 CARDIOLOGY CONSULTATION REASON FOR CONSULTATION: Stroke, thought to be possibly embolic. HISTORY OF PRESENT ILLNESS: Mr. Sukhdev Gasca is a very pleasant 61-year-old gentleman, who presente d to the hospital on the with severe nausea associated with some vomiting. He ultimately underw ent the imaging, which showed that he had cerebellar infarcts along with some cerebral infarcts thoug ht to be embolic. We have been consulted about the possibility of this being cardioembolic. There i s no chest pain or pressure, no tightness, or heaviness. There is no syncope or near syncope. The patient is currently doing much better. CURRENT MEDICATIONS: 1. Aspirin. 2. Atorvastatin. 3. Amlodipine. REVIEW OF SYSTEMS: Constitutional: No significant weight gain or loss. Vision: No changes. Heari ng: No changes. Pulmonary: No cough or wheezing. Gastrointestinal: No nausea, vomiting, or diarr hea. Skin: No rashes. Neurologic: No unilateral weakness or numbness. Psychiatric: No unusual d epression or anxiety. Hematologic: No unusual bruising. Genitourinary: No burning with urination. Musculoskeletal: No unusual joint pains. PHYSICAL EXAMINATION: GENERAL: This is a pleasant 61-year-old gentleman, in no distress. VITAL SIGNS: Blood pressure 145/76, pulse 87 and regular. HEENT: Sclerae nonicteric. Mouth mucous membranes moist. NECK: Supple, no lymphadenopathy. LUNGS: Clear. No wheezing, rales, or rhonchi. CARDIAC: Normal S1, normal S2. There is no murmur, rub, or gallop. ABDOMEN: Soft, nontender. EXTREMITIES: No clubbing, no cyanosis. There is no edema. LABORATORY AND X-RAY FINDINGS: EKG sinus rhythm with elevation of the J point in V2 and V1 with some mild ST elevation in those leads. Echocardiogram showed borderline left ventricular hypertrophy, otherwise normal ejection fraction wit h normal study. ASSESSMENT: 1. Probable embolic cerebrovascular accident. 2. Abnormal electrocardiogram? normal variant, need to consider the possibility of Brugada syndrome. PLAN: 1. We will have a transesophageal echo done. 2. Consideration for electrophysiologic evaluation. I will ask Dr. Schultz to see the patient, to see whether implantable loop recorder may be indicated if we do not find an embolic source on the IGOR, in addition likely his opinion on the EKG.
[2017-03-17 05:54] LABS: Anion Gap 10 mmol/L (10-20); BUN (Urea Nitrogen) 21 mg/dL (8.4-25.7); Calc. Creatinine Clearance 97 mL/min (70-130); Calcium 8.9 mg/dL (7.8-10.44); Carbon Dioxide 25 mmol/L (23-31); Chloride 107 mmol/L (98-107); Estimated GFR-MDRD 77; Glucose 99 mg/dL (80-115); Potassium 3.8 mmol/L (3.5-5.1); Sodium 138 mmol/L (136-145)
[2017-03-17] MEDS: Sodium Chloride 0.9% 1,000 ML IV SCH ×2 (06:00→17:57)
--- NOTE | 2017-03-17 07:54 | PDOC.FM ---
- Subjective Subjective: Patient doing well this morning. He reports some continued dizziness when he walks, but states that he is able to ambulate without difficulty and that this has continued to improve. He denies any CP, SOB, weakness, numbness, headache, lightheadedness. - Objective MAR Reviewed: Yes Vital Signs & Weight: Vital Signs (12 hours) Temp Pulse Resp BP Pulse Ox 03/17/17 04:00 97.8 F 85 16 126/80 97 03/16/17 23:23 98.2 F 88 16 129/78 96 Weight Weight 108.409 kg I&O: 03/16/17 03/17/17 03/18/17 06:59 06:59 06:59 Intake Total 540 480 Balance 540 480 Result Diagrams: 03/11/17 02:55 03/17/17 05:17 <Melonie Robbins - Last Filed: 03/17/17 07:53> - Objective Vital Signs & Weight: Vital Signs (12 hours) Temp Pulse Resp BP Pulse Ox 03/17/17 10:36 78 03/17/17 10:02 98.5 F 78 16 155/85 H 94 L 03/17/17 08:00 98.5 F 78 16 03/17/17 04:00 97.8 F 85 16 126/80 97 Weight Weight 108.409 kg I&O: 03/16/17 03/17/17 03/18/17 06:59 06:59 06:59 Intake Total 540 480 Balance 540 480 Result Diagrams: 03/11/17 02:55 03/17/17 05:17 <Ananth Ocampo - Last Filed: 03/17/17 12:13> Phys Exam - Physical Examination Constitutional: NAD HEENT: moist MMs horizontal nystagmus Respiratory: no wheezing, no rales, no rhonchi, clear to auscultation bilateral Cardiovascular: RRR, no significant murmur, no rub Gastrointestinal: soft, non-tender, no distention, positive bowel sounds Musculoskeletal: no edema, pulses present Neurological: non-focal, moves all 4 limbs Psychiatric: normal affect, A&O x 3 <Melonie Robbins - Last Filed: 03/17/17 07:53> Dx/Plan (1) Embolic cerebrovascular disease Code(s): I66.9 - OCCLUSION AND STENOSIS OF UNSPECIFIED CEREBRAL ARTERY Status : Acute (2) HTN (hypertension) Code(s): I10 - ESSENTIAL (PRIMARY) HYPERTENSION Status: Acute QualifierTitle: Hypertension type: essential hypertension Qualified Code( s): I10 - Essential (primary) hypertension (3) Nonsustained supraventricular tachycardia Code(s): I47.1 - SUPRAVENTRICULAR TACHYCARDIA Status: Acute - Plan Plan: Embolic CVA -Pt shows signs of cerebellar stroke. Has multiple emboli on CTA/MRI -TTE showed EF 55-60%, mild diastolic dysfunction and mild MR and TR -MRI shows Embolic nature of stroke, worst sign of infarction in R. cerebellar area. -Neurology consulted, appreciate recs -Continue High dose aspirin and started on a Statin -Will continue to work with PT/OT and follow recs -Has graduated to Walking program. Doing well from their standpoint. -Cardiology has been consulted for IGOR with agitated saline and possible loop recorder, appreciate recs. Non-sustained SVT -Pt had 28 beats of SVT overnight. He was hemodynamically stable and asymptomatic at the time -Cardiology is on board, appreciate recs. -EKG on admission showed ST elevation in V1 and V2, cardiology recommended to consider Brugada syndrome. HTN -Started on amlodipine. -Will monitor BP and adjust as needed <Melonie Robbins - Last Filed: 03/17/17 07:53> Attending Addendum - Attending Addendum I personally evaluated the patient and discussed the management with Dr. Robbins. I agree with the History, Examination, Assessment and Plan documented above with any addition or exceptions noted below. Patient doing well. He underwent IGOR this morning, awaiting report. Per cardiology, he will also have EP eval due to his abnormal EKG, and patient did have episode of SVT overnight. BP well controlled and continues on statin therapy. Continue therapy. Plan is to go home once cleared by cardiology. <Ananth Ocampo - Last Filed: 03/17/17 12:13>
[2017-03-17] MEDS ORDERED: Diprivan 0 ML ONE (08:40)
[2017-03-17] MEDS ORDERED: Diprivan 20 ML ONE (09:02)
--- NOTE | 2017-03-17 10:14 | ECHO ---
TRANSESOPHAGEAL ECHO: HISTORY: This is a 61-year-old gentleman with a CAV. DATE OF PROCEDURE: 03/17/17. PROCEDURE: The patient was taken to the PACU. The patient is sedated by anesthesiology. A transesophageal prob e was placed to the distal esophagus and stomach. Echocardiograms were obtained. Contrast bubble ex am was performed. The transesophageal probe was removed. FINDINGS: 1. Normal left ventricular systolic function. 2. Normal mitral and aortic valves. 3. Mild mitral regurgitation. 4. Mild tricuspid regurgitation. 5. No thrombus is noted in the left atrium or left atrial appendage. 6. No PFO by color Doppler or contrast bubble exam. 7. Atherosclerotic debris in the descending aorta. IMPRESSION: No patent foramen ovale by color Doppler exam or contrast bubble study. POS: OSBALDO
[2017-03-17] MEDS: Aspirin 325 MG TAB PO SCH (10:35)
[2017-03-17] MEDS: Enoxaparin Sodium 40 MG/0.4 ML SYRINGE SC SCH (10:36)
[2017-03-17] MEDS: Amlodipine 10 MG TAB PO SCH (10:36)
[2017-03-17] MEDS ORDERED: Communication Order-Pharmacy FS SCH (18:00)
--- NOTE | 2017-03-17 19:06 | PRG ---
DATE OF SERVICE: 03/17/2017 SUBJECTIVE: Mr. Gasca underwent a transesophageal echo today, which was unrevealing. There was co ncern about the possibility that he had Brugada syndrome. I have asked Dr. Schultz to see him and Dr. Augustus marx said he has Brugada syndrome. The patient also presented initially with nausea, vomiting, actually get the history initially that h jv had syncope, but apparently the patient actually did have a syncopal episode, which brought him to the hospital. OBJECTIVE: VITAL SIGNS: On exam today, the blood pressure 144/80, pulse 75. LUNGS: Clear. CARDIAC: Normal S1, normal S2. LABORATORY DATA AND IMAGING: Reviewing the notes, he had a peak troponin 0.036. The EKG looks normal now. ASSESSMENT: 1. Probable Brugada syndrome. 2. Syncopal episode. PLAN: 1. We will proceed to cardiac catheterization tomorrow to make sure his coronary status prior to the defibrillator implantation. Risks including stroke, heart attack, iodine allergy, loss of blood sup ply to the leg or kidney, stent thrombosis, stent restenosis all discussed. The patient understands and wished to proceed. 2. Probably, we will proceed with defibrillator implantation following that.
[2017-03-17] MEDS: Atorvastatin Calcium 40 MG TAB PO SCH (21:17)
--- NOTE | 2017-03-18 02:58 | CON ---
DATE OF CONSULTATION: 03/17/2017 ELECTROPHYSIOLOGY CONSULTATION REPORT REFERRING PHYSICIAN: Jose Luis Quintero M.D. I am seeing Mr. Gasca at our [facility] Telemetry Floor as an electrophysiologic data integrity consultant. His problems are, 1. Abnormal EKG, typical for type 1 Brugada pattern on presentation, now resolved. 2. Nonsustained ventricular tachycardia on lunchroom monitor. 3. Presentation with syncope. 4. Subacute cerebellar stroke. A. MRI brain showed acute right cerebellar ischemic infarct. 5. No prior history of heart disease or heart attacks. A. A 2D echo from 03/11/2017, showed LVEF 55% to 60%, borderline concentric LVH , moderate left atrial enlargement, mild MR, mild TR B. IGOR on 03/17/2017 reveals no intracardiac clots, mild MR, mild TR, no PFO, normal LVEF. 6. History of hypertension and hyperlipidemia. ALLERGIES: None noted. MEDICATIONS AT HOME: Included none. SUBJECTIVE: Mr. Gasca presented on the after an episode of syncope. He was at his normal usual health while at night walking to the bathroom, he suddenly passed out. He fell on this side, but then his found him stooped over the toilet and had again falling on the left side. He was very diaphoretic and EMS was called. When he woke up, he had severe vertigo. He was also noted to have some headaches. Initial evaluation was revealing an abnormal EKG with downsloping ST elevation in V1. His cardiac enzymes were only borderline changed. CT brain was negative, but brain MRI was suggestive of acute cerebellar stroke. Multifocal embolization were seen suggestive of embolic phenomenon. Since then he is doing better. He now underwent [place] [facility] [place] angiogram demonstrating mid cerebral arterial stenosis in the right M1 segment. While on telemetry last night developed unprovoked nonsustained ventricular tachycardia at 28 beats monomorphic with cycle length about 150 beats per minute. Currently, denies angina or chest pains. No shortness of breath, no fever, chills or cough. No stroke-like symptoms, no neurological deficits. No burning with urination. No bleeding issues, no further neurological deficits. Rest of 12-point system otherwise unremarkable. PAST MEDICAL HISTORY: As above. He has no prior history of heart disease or heart attacks. He never passed out in the past. SOCIAL HISTORY: The patient is a nonsmoker, nondrinker. He is , no children from current marriage. He has 3 children from prior marriages. He has prior history of nephrolithiasis, requiring a ureteral stent. FAMILY HISTORY: Significant for mother dying at age 72. Father dying in age 74 possibly due to chronic heart disease. OBJECTIVE DATA: VITAL SIGNS: Blood pressure 124/80, heart rate 75, respirations 20, temperature 98.7 degrees Fahrenheit. GENERAL: He is alert and oriented man, in no apparent distress. NECK: Supple. Jugular veins are not distended. CHEST: Coarse without crackles. CARDIOVASCULAR: Heart sounds are regular to rate and rhythm. No murmur or gallop. ABDOMEN: Benign. Bowel sounds positive. EXTREMITIES: Lower extremities without edema, clubbing or cyanosis. Pulses are adequate. NEUROLOGIC: The patient is nonfocal. MUSCULOSKELETAL: No joint swelling or deformities. SKIN: Without rash. DATABASE: The EKGs initially revealed a sinus rhythm with a rate of 83 beats per minute. There is RSR pattern seen in V1 with downsloping ST elevation. The J point elevation about 2 mm. The V2 is very similar to V1 as well. No ST- T changes in the rest of the leads. Subsequent EKG from about 2 hours later at 4:54 in the morning is similar. Subsequent EKG from today reveals a sinus rhythm with no J point elevation, some mild QT prolongation at 473 milliseconds. The telemetry strips as above nonsustained VT episodes 28 beats are seen from last night. There seems to be dissociated P waves during the wide complex tachycardia suggestive of ventricular tachycardia. LABORATORY DATA: Most recent sodium 138, potassium 3.8, BUN 21, creatinine 0.9. On presentation, sodium 137, potassium 4, BUN 16, creatinine 0.99, carbon dioxide was 17 though reduced, chloride is 110. White count is 10.1, hemoglobin 13.9, platelet count is 266. INR is 1. Total troponin 0.01, 0.012 and 0.036. ASSESSMENT AND PLAN: Mr. Gasca is a pleasant 61-year-old man with a history of hypertension, but no cardiac history. No prior syncopal spell up until the evening of admission. He also had marked abnormal EKG, which is diagnostic for Brugada syndrome. That was transient though and now resolved. He also ruled into a cerebellar stroke by his MRI. Workup so far did not identify source of emboli by IGOR. He did not have any atrial fibrillation observed on monitor and he had a nonsustained ventricular tachycardia. This gentlemen's prognosis is concerning. His EKG is suggestive of Brugada syndrome, which is oftentimes associated with ventricular tachycardia, but also with paroxysmal atrial fibrillation. His syncopal spell puts him in the symptomatic category. There is a consideration for ICD implant on these people. EP study prior to that could help us to document any sustained arrhythmias as well. The device will also help with further monitoring him for recurrence of the atrial fibrillation in which case anticoagulation likely will be imperative over aspirin and Plavix. I discussed these issues with him. For now, they are somewhat undecided. We will discuss with Dr. Quintero as well and plan to perform at a near date. He recovered well from his recent stroke and has no intracrdiac clots on IGOR. It is reasonable to proceed. Alternative to this is a loop recorder monitor, but naturally that will not provide any protection for him in case of recurrent ventricular or atrial arrhythmias. I had a long discussion with this gentleman about the Brugada syndrome, also he asked me to call his , for whom I also explained these issues. Risks and benefits of the proposed EP study and ICD implantation procedure were all discussed. They understand risk of infection, bleeding, pneumothorax, tamponade , lead dislodgement, device malfunctions, inappropriate shocks were considered for tomorrow. Thank you again for allowing me to participate in the care of this patient. ROMAN
[2017-03-18] MEDS ORDERED: Diazepam 5 MG TAB PO SCH (03:00)
[2017-03-18 06:18] LABS: Anion Gap 11 mmol/L (10-20); BUN (Urea Nitrogen) 18 mg/dL (8.4-25.7); Calc. Creatinine Clearance 143 mL/min (70-130); Calcium 8.6 mg/dL (7.8-10.44); Carbon Dioxide 24 mmol/L (23-31); Chloride 108 mmol/L (98-107); Estimated GFR-MDRD Greater than 90; Glucose 79 mg/dL (80-115); Potassium 3.7 mmol/L (3.5-5.1); Sodium 139 mmol/L (136-145)
[2017-03-18] MEDS: Sodium Chloride 0.9% 1,000 ML IV SCH ×2 (06:30→20:40)
--- NOTE | 2017-03-18 08:25 | PDOC.FM ---
- Subjective Subjective: Patient doing well this AM. No significant overnight events. Explained plan for today regarding cardiac catheterization per Dr. Quintero. Patient is on board with plan. He has been working with PT and states that his gait has improved. He is feeling well and denies any chest pain, shortness of breath, N/V, or dizziness. - Objective MAR Reviewed: Yes Vital Signs & Weight: Vital Signs (12 hours) Temp Pulse Resp BP Pulse Ox 03/18/17 07:15 97.5 F L 74 18 143/89 H 99 03/18/17 04:30 98.3 F 74 16 135/79 94 L 03/18/17 01:06 98.4 F 77 16 140/76 96 Weight Weight 107.955 kg I&O: 03/17/17 03/18/17 03/19/17 06:59 06:59 06:59 Intake Total 480 780 Balance 480 780 Result Diagrams: 03/11/17 02:55 03/18/17 04:20 EKG Reviewed by me: Yes Radiology Reviewed by me: Yes <Winter Bashir - Last Filed: 03/18/17 08:24> - Objective Vital Signs & Weight: Vital Signs (12 hours) Temp Pulse Resp BP Pulse Ox 03/18/17 11:20 97.9 F 65 18 144/78 H 90 L 03/18/17 07:15 97.5 F L 74 18 143/89 H 99 03/18/17 04:30 98.3 F 74 16 135/79 94 L 03/18/17 01:06 98.4 F 77 16 140/76 96 Weight Weight 107.955 kg I&O: 03/17/17 03/18/17 03/19/17 06:59 06:59 06:59 Intake Total 480 780 Balance 480 780 Result Diagrams: 03/11/17 02:55 03/18/17 04:20 <Ananth Ocampo - Last Filed: 03/18/17 12:00> Phys Exam - Physical Examination Constitutional: NAD HEENT: moist MMs Neck: supple Respiratory: no wheezing, no rales, no rhonchi, clear to auscultation bilateral Cardiovascular: RRR, no significant murmur Gastrointestinal: soft, no distention, positive bowel sounds Musculoskeletal: no edema Neurological: non-focal Psychiatric: A&O x 3 Skin: no rash, cap refill <2 seconds <Winter Bashir - Last Filed: 03/18/17 08:24> Dx/Plan (1) Brugada syndrome Code(s): I49.8 - OTHER SPECIFIED CARDIAC ARRHYTHMIAS Status: Acute (2) Embolic cerebrovascular disease Code(s): I66.9 - OCCLUSION AND STENOSIS OF UNSPECIFIED CEREBRAL ARTERY Status : Acute (3) HTN (hypertension) Code(s): I10 - ESSENTIAL (PRIMARY) HYPERTENSION Status: Chronic QualifierTitle: Hypertension type: essential hypertension Qualified Code( s): I10 - Essential (primary) hypertension (4) Nonsustained supraventricular tachycardia Code(s): I47.1 - SUPRAVENTRICULAR TACHYCARDIA Status: Resolved - Plan Plan: Embolic CVA -Pt shows signs of cerebellar stroke. Has multiple emboli on CTA/MRI -TTE showed EF 55-60%, mild diastolic dysfunction and mild MR and TR -MRI shows Embolic nature of stroke, worst sign of infarction in R. cerebellar area. -Neurology consulted, appreciate recs -Continue High dose aspirin and started on a Statin -Will continue to work with PT/OT and follow recs -Has graduated to Walking program. Doing well from their standpoint. -IGOR negative for vegetations or other abnormal findings Non-sustained SVT -Resolved. Hemodynamically stable. -Appreciate cardiology recommendations -EKG on admission showed ST elevation in V1 and V2, cardiology recommended to consider Brugada syndrome. -EP consulted; Dr. Schultz recommended possible EP study and placement of defibrillator HTN -Started on amlodipine. -Will monitor BP and adjust as needed -BP this AM 133/79 Brugada Syndrome -Dr. Schultz, EP, consulted; appreciate recs -Cardiac catheterization today per Dr. Quintero to ensure heart is in good condition before ICD is placed -Eventual placement of ICD due to concerns for vtach and pAfib resulting from Brugada syndrome -Diagnosis explained to patient in detail by Dr. Schultz <Winter Bashir - Last Filed: 03/18/17 08:24> Attending Addendum - Attending Addendum I personally evaluated the patient and discussed the management with Dr. Bashir. I agree with the History, Examination, Assessment and Plan documented above with any addition or exceptions noted below. Patient is s/p heart cath and is supposed to go for AICD placement this afternoon. Symptoms well controlled. No telemetry issues overnight. Further dispo per Cardiology/EP. <Ananth Ocampo - Last Filed: 03/18/17 12:00>
[2017-03-18] MEDS ORDERED: Midazolam HCl 2 mg/2 ml Vial ONE ×2 (08:37→17:07)
[2017-03-18] MEDS ORDERED: Fentanyl 100 MCG/2 ML VIAL ONE ×2 (08:37→17:08)
[2017-03-18] MEDS ORDERED: Acetaminophen/Codeine 30-300mg Tablet PO PRN ×2 (09:15)
[2017-03-18] MEDS ORDERED: Sodium Chloride 0.9% 200 ML IV SCH (09:15)
[2017-03-18] MEDS ORDERED: traMADol HCl 50 MG TAB PO PRN ×2 (09:15→21:24)
[2017-03-18] MEDS ORDERED: Nitroglycerin 0.4 MG TAB (25 Tab Bottle) SL PRN ×2 (09:15→21:24)
[2017-03-18] MEDS: Amlodipine 10 MG TAB PO SCH (12:29)
[2017-03-18] MEDS: Aspirin 325 MG TAB PO SCH (12:29)
[2017-03-18] MEDS ORDERED: Propofol 500 MG/50 ML VIAL ONE (17:08)
[2017-03-18] MEDS ORDERED: CEFAZOLIN/Water 2 GM/20 ML SYRINGE ONE (17:46)
[2017-03-18] MEDS ORDERED: Lidocaine 1% (PF) 30 ML VIAL ONE (18:02)
[2017-03-18] MEDS: Atorvastatin Calcium 40 MG TAB PO SCH (20:35)
[2017-03-18] MEDS ORDERED: Bisacodyl 5 MG TAB PO PRN (21:24)
[2017-03-18] MEDS ORDERED: diphenhydrAMINE 25 MG CAP PO PRN (21:24)
[2017-03-18] MEDS ORDERED: Ondansetron HCl/PF 4 MG/2 ML Vial IVP PRN (21:24)
[2017-03-18] MEDS ORDERED: Acetaminophen 325 MG TAB PO PRN (21:24)
[2017-03-18] MEDS ORDERED: Temazepam 15 MG CAP PO PRN (21:24)
[2017-03-18] MEDS ORDERED: Bisacodyl 10 MG SUPP PR PRN (21:24)
[2017-03-18] MEDS ORDERED: Mag-Al 1200 mg/1200 mg/30 ML UDCUP PO PRN (21:24)
[2017-03-18] MEDS ORDERED: Silver Sulfadiazine 1% Cream 50 GM JAR TOP PRN (21:24)
[2017-03-18] MEDS: Cephalexin 250 MG CAP PO SCH (23:49)
[2017-03-19 06:22] LABS: Anion Gap 12 mmol/L (10-20); BUN (Urea Nitrogen) 12 mg/dL (8.4-25.7); Calc. Creatinine Clearance 158 mL/min (70-130); Calcium 8.5 mg/dL (7.8-10.44); Carbon Dioxide 21 mmol/L (23-31); Chloride 108 mmol/L (98-107); Estimated GFR-MDRD Greater than 90; Glucose 75 mg/dL (80-115); Potassium 3.6 mmol/L (3.5-5.1); Sodium 137 mmol/L (136-145)
[2017-03-19] MEDS: Cephalexin 250 MG CAP PO SCH (06:37)
--- NOTE | 2017-03-19 08:16 | PDOC.FM ---
- Subjective Subjective: Patient doing well this AM. He tolerated cardiac cath and AICD placement without complications. He has some pain at the surgical site, but no pain at the site of the catheter insertion. The pain is well controlled with tylenol # 3. He denies CP, SOB, difficulty walking, dizziness, nausea, vomiting. - Objective MAR Reviewed: Yes Vital Signs & Weight: Vital Signs (12 hours) Temp Pulse Resp BP Pulse Ox 03/19/17 07:18 99.2 F 76 20 140/74 96 03/19/17 04:13 98.1 F 78 16 141/89 H 97 03/19/17 00:00 98.1 F 76 16 139/85 95 03/18/17 21:28 98.2 F 69 18 Weight Weight 113.443 kg I&O: 03/18/17 03/19/17 03/20/17 06:59 06:59 06:59 Intake Total 780 1865 Output Total 600 Balance 780 1265 Result Diagrams: 03/11/17 02:55 03/19/17 04:21 <Melonie Robbins - Last Filed: 03/19/17 08:13> - Objective Vital Signs & Weight: Vital Signs (12 hours) Temp Pulse Resp BP Pulse Ox 03/19/17 09:02 76 03/19/17 08:16 99.2 F 76 20 98 03/19/17 07:18 99.2 F 76 20 140/74 96 03/19/17 04:13 98.1 F 78 16 141/89 H 97 03/19/17 00:00 98.1 F 76 16 139/85 95 Weight Weight 113.443 kg I&O: 03/18/17 03/19/17 03/20/17 06:59 06:59 06:59 Intake Total 780 1865 Output Total 600 Balance 780 1265 Result Diagrams: 03/11/17 02:55 03/19/17 04:21 <Ananth Ocampo - Last Filed: 03/19/17 11:03> Phys Exam - Physical Examination Constitutional: NAD HEENT: moist MMs Respiratory: no wheezing, no rales, no rhonchi, clear to auscultation bilateral Cardiovascular: RRR, no significant murmur, no rub Gastrointestinal: soft, non-tender, no distention, positive bowel sounds Musculoskeletal: no edema, pulses present Neurological: non-focal, moves all 4 limbs Psychiatric: normal affect, A&O x 3 Deviation from normal: incision c/d/i <Melonie Robbins - Last Filed: 03/19/17 08:13> Dx/Plan (1) Embolic cerebrovascular disease Code(s): I66.9 - OCCLUSION AND STENOSIS OF UNSPECIFIED CEREBRAL ARTERY Status : Acute (2) Brugada syndrome Code(s): I49.8 - OTHER SPECIFIED CARDIAC ARRHYTHMIAS Status: Acute (3) HTN (hypertension) Code(s): I10 - ESSENTIAL (PRIMARY) HYPERTENSION Status: Chronic QualifierTitle: Hypertension type: essential hypertension Qualified Code( s): I10 - Essential (primary) hypertension (4) Nonsustained supraventricular tachycardia Code(s): I47.1 - SUPRAVENTRICULAR TACHYCARDIA Status: Resolved - Plan Plan: Embolic CVA -Pt shows signs of cerebellar stroke. Has multiple emboli on CTA/MRI -TTE showed EF 55-60%, mild diastolic dysfunction and mild MR and TR -MRI shows Embolic nature of stroke, worst sign of infarction in R. cerebellar area. -Neurology consulted, appreciate recs -Continue High dose aspirin and started on a Statin -Will continue to work with PT/OT and follow recs -Has graduated to Walking program. Doing well from their standpoint. -IGOR negative for vegetations or other abnormal findings Brugada Syndrome -Dr. Schultz, EP, consulted; appreciate recs -s/p Cardiac catheterization on 03/18 to ensure heart in good condition prior to ICD placement - showed RCA with 30% plaque and tortuous vessel, Dr. Quintero recommended medical management -s/p ICD placement on 03/18 due to concerns for vtach and pAfib resulting from Brugada syndrome Non-sustained SVT -Resolved. Hemodynamically stable. This was likely 2/2 to Brugada syndrome -Appreciate cardiology recommendations -EKG on admission showed ST elevation in V1 and V2 -EP consulted; Dr. Schultz HTN -Started on amlodipine. -Will monitor BP and adjust as needed -BP has been elevated, however the patient's amlodipine was held for his procedures yesterday. <Melonie Robbins - Last Filed: 03/19/17 08:13> Attending Addendum - Attending Addendum I personally evaluated the patient and discussed the management with Dr. Robbins. I agree with the History, Examination, Assessment and Plan documented above with any addition or exceptions noted below. Patient doing well after heart cath and AICD placement yesterday. He has been cleared for discharge and will be going home later today. <Ananth Ocampo R - Last Filed: 03/19/17 11:03>
[2017-03-19] MEDS: Amlodipine 10 MG TAB PO SCH (09:02)
[2017-03-19] MEDS: Aspirin 325 MG TAB PO SCH (09:02)
[2017-03-19] MEDS: Sodium Chloride 0.9% 1,000 ML IV SCH (09:03)
--- NOTE | 2017-03-19 09:11 | RAD ---
PORTABLE UPRIGHT FRONTAL CHEST RADIOGRAPH: Date: 03-19-17 Comparison: 03-11-17 History: Pacemaker placement. FINDINGS: There is a dual-lead left sided AICD, with leads overlying the region of the right atrium and right v entricle. There is no pneumothorax, pleural fluid, focal consolidation or alveolar edema. There is pr ominence of the cardiac silhouette. IMPRESSION: Dual-lead transvenous pacer in place. No acute findings. POS: RAMU
[2017-03-19] MEDS ORDERED: Atorvastatin Calcium 40 MG TAB PO SCH ×2 (09:22→21:00)
--- NOTE | 2017-03-19 09:43 | PRG ---
DATE OF SERVICE: 03/19/2017 Mr. Gasca is doing well, no complaints of chest pain or pressure. PHYSICAL EXAMINATION: VITAL SIGNS: Blood pressure 140/70, pulse 76. LUNGS: Clear. CARDIAC: Normal S1 and S2. Heart catheterization yesterday revealed mild plaque in the right coronary, 30% plaque. ASSESSMENT: 1. Brugada syndrome, status post defibrillator implantation. 2. Mild coronary disease. 3. Hypertension. PLAN: 1. Amlodipine 5 mg a day. 2. Aspirin 81 mg a day. 3. Atorvastatin 40 mg a day. 4. To see me in the office in about a month.
[2017-03-19 11:22] VITALS: BP 136/89; TEMP 98.8
--- NOTE | 2017-03-19 18:08 | PRG ---
DATE OF SERVICE: 03/19/2017 SUBJECTIVE: Mr. Gasca is doing well one day after ICD implant. OBJECTIVE: VITAL SIGNS: The blood pressure is 136/89, heart rate 93, respirations 20, temperature 98.8 degrees Fahrenheit. GENERAL: Alert and oriented man in no apparent distress. NECK: Supple. No crackles. HEART: Regular rate and rhythm. No murmur or gallop. ABDOMEN: Benign. Bowel sounds positive. EXTREMITIES: Lower extremities without edema, clubbing or cyanosis. Left precordial ICD insertion site is well healed. DATABASE: Telemetry strips reveals sinus rhythm. No significant arrhythmias. LABORATORY DATA: The chest x-ray from this morning reveals no pneumothorax. Interrogation of the ICD has adequate function. It is a dual-chamber device with adequate fx.. He is doing well one day post-implant. 2 week wound check. [facility]AMPUSOsbaldo
[2017-03-20] MEDS ORDERED: Amlodipine 5 MG TAB PO SCH (09:00)
--- NOTE | 2017-03-20 23:26 | DIS-2 ---
DATE OF ADMISSION: 03/11/2017 DATE OF DISCHARGE: 03/19/2017 ADMITTING RESIDENT: Melonie Robbins MD DISCHARGE RESIDENT: Melonie Robbins MD ADMITTING ATTENDING: Haider Osorio MD DISCHARGE ATTENDING: Ananth Ocampo MD CONSULTATIONS: 1. Florecita Pedraza M.D. with Neurology. 2. Jose Luis Quintero M.D. with Cardiology. 3. Bam Schultz M.D. with EP. PROCEDURES: 1. A transesophageal echo done on 03/17/2017 that showed normal systolic function, no thrombus in th e left atrium, normal bubble exam with no patent foramen ovale, and atherosclerotic debris in the owen cending aorta. 2. Cardiac catheterization on 03/18/2017 that showed ejection fraction of 60% in RCA with 30% plaque in tortuous vessel. 3. ICD placement on 03/18/2017. IMAGIN. Abdomen x-ray showed no evidence of bowel obstruction and bilateral nephrolithiasis. 2. Chest x-ray showed lung hypoinflation and vascular crowding and enlargement of the cardiac silhou ette. No acute intrathoracic abnormality is appreciated. 3. Brain CT showed no acute intracranial hemorrhage or mass effect, very mild white matter changes. No definite acute infarct by CT. 4. CT dissection showed no abdominal aortic aneurysm or dissection as well as bilateral nonobstructi ng renal calculi. 5. Transthoracic echocardiogram showed left ventricular ejection fraction of 55-60%, borderline left ventricular hypertrophy, E:A flow reversal suggestive of diastolic dysfunction. 6. Brain MRI showed multifocal infarcts, cerebral infarcts have a cortical location suggesting embol ic phenomenon. The largest infarct is in the right cerebellar hemisphere. 7. CT angiography showed severe stenosis involving the origin/proximal right M1 segment and mild rebecca nosis involving the proximal left M1 segment. No significant stenosis of either carotid artery and s hort segment severe stenosis involving the proximal right vertebral artery. PRIMARY DIAGNOSES: 1. Acute cerebellar cerebrovascular accident. 2. Brugada syndrome. 3. Nonsustained supraventricular tachycardia. SECONDARY DIAGNOSIS: Hypertension. DISCHARGE MEDICATIONS: 1. Acetaminophen with codeine 300/30 mg 1 tablet p.o. q.4 hours p.r.n. pain. 2. Amlodipine 5 mg p.o. daily. 3. Aspirin 81 mg p.o. daily. 4. Atorvastatin 40 mg p.o. at bedtime. 5. Keflex 500 mg p.o. q.6 hours, dispense #38. 6. [facility] p.o. daily. DISCONTINUED MEDICATIONS: None. HOSPITAL COURSE: This is a 61-year-old male with no significant past medical history, who presented to the ED complaining of headache and dizziness as well as nausea and vomiting. The patient was foun d to have bilateral horizontal nystagmus and an MRI was done which showed several embolic appearing a cute CVAs. Dr. Pedraza with Neurology was consulted and the patient was started on aspirin, atorvastati n, and the source of the stroke was worked up with a CTA and TTE. As patient's CVAs appeared embolic even though there was no new thrombus seen on the TTE, a Cardiology consult was made for a IGOR. Car diology came to see the patient and evaluated the patient's EKG and felt that the patient needed to b e worked up for potentially having Brugada syndrome. The patient overnight that night went into nons ustained SVT and had 28 beats of SVT. The patient during that time was asymptomatic and had normal v ital signs and was hemodynamically stable. EP was consulted for potential ICD placement and EP felt also that this patient met criteria for Brugada syndrome and counseled the patient on the risks and b enefits of ICD placement and the patient elected to move forward with getting ICD. The patient had a cardiac catheterization done first to determine the status of his heart at this time. This showed t hat he has 30% plaque in his RCA, but otherwise no significant stenosis. The patient received his IC D in the same day. The patient had no complications postop. The patient was counseled that he would be unable to drive for the next 6 months and at the time of discharge, the patient's EKG no longer s howed any ST changes or arrhythmias. The patient also improved from dizziness standpoint, he worked with PT and was able to graduate to the walking program and by the time of discharge was able to walk without any difficulties. He was discharged though with outpatient physical therapy for the outpati ent dizziness program to help with any continued issues with dizziness moving forward. DISPOSITION: Stable. DISCHARGE INSTRUCTIONS: 1. Location: Home. 2. Diet: Heart healthy. 3. Activity: Orthopedic limitations with the left arm and sling for 1 week due to ICD placement and no driving for 6 months. 4. Follow up with Dr. Leon within 3-4 weeks and establish with [facility] as your PCP within 1 -2 weeks.
== END 2017-03-19 12:56 | disposition home or self-care (01) | DRG 242 ==
LOC: ERS 02:05 → 2SW 05:14 → OBSVTOIN 05:14 → 2SE 21:07
PROVIDERS: ADMIT Family Medicine; ATTEND Family Medicine
PROC: B030ZZZ Magnetic Resonance Imaging (MRI) of Brain (ICD-10-PCS; 2017-03-11)
PROC: 0JH606Z Insertion of Pacemaker, Dual Chamber into Chest Subcutaneous Tissue and Fascia, Open Approach (ICD-10-PCS; principal; 2017-03-18)
PROC: B2111ZZ Fluoroscopy of Multiple Coronary Arteries using Low Osmolar Contrast (ICD-10-PCS; 2017-03-18)
PROC: B2151ZZ Fluoroscopy of Left Heart using Low Osmolar Contrast (ICD-10-PCS; 2017-03-18)
PROC: 02H63JZ Insertion of Pacemaker Lead into Right Atrium, Percutaneous Approach (ICD-10-PCS; 2017-03-18)
PROC: 02HK3JZ Insertion of Pacemaker Lead into Right Ventricle, Percutaneous Approach (ICD-10-PCS; 2017-03-18)
PROC: 4A023N7 Measurement of Cardiac Sampling and Pressure, Left Heart, Percutaneous Approach (ICD-10-PCS; 2017-03-18)
DX: I47.1 Supraventricular tachycardia (principal); I63.9 Cerebral infarction, unspecified; N17.9 Acute kidney failure, unspecified; E86.0 Dehydration; A08.4 Viral intestinal infection, unspecified; I49.8 Other specified cardiac arrhythmias; I10 Essential (primary) hypertension; E78.5 Hyperlipidemia, unspecified; R27.0 Ataxia, unspecified; Z95.810 Presence of automatic (implantable) cardiac defibrillator; Z82.49 Family history of ischemic heart disease and other diseases of the circulatory system; Z83.3 Family history of diabetes mellitus
CPT/HCPCS: 33249; 36005; 36415; 70450; 70496; 70498; 70551; 71045; 71275; 74018; 75820; 76942; 80048; 80053; 80061; 82553; 83690; 83735; 84484; 85025; 85610; 85652; 85730; 86140; 93005; 93010; 93306; 93312; 93458; 93641; 93798; 94760; 96365; 96375; 96376; 99152; 99153; A4216; C1721; C1769; C1777; C1898; G8978-GP-CI; G8979-GP-CI; G8980-GP-CI; G8987-GO-CK; G8988-GO-CI; G8996-GN-CH; G8997-GN-CH; G8998-GN-CH; J0360; J1644; J1650; J2001; J2250; J2270; J2405; J2704; J2765; J3010; J3490; Q0162

== ENCOUNTER 2017-03-23 18:40 | Inpatient (IN) | payer OTHER, SELFPAY ==
[~2017-03-23 18:40] MED LIST: Glycopyrrolate 0.2 MG/ML 5 ML SYRINGE ONE; ISOVUE-370 76%-LOCM 1 ML ONE; Lidocaine 1% PF 5 ML VIAL ONE; PHENYLEPHRINE-NS 100 MCG/ML 10 ML SYRINGE ONE; PROPOFOL 200 MG/20 ML VIAL ONE; Succinylcholine Chloride 20 MG/ML 10 ml SYRINGE FS ONE; ePHEDrine/0.9% NaCl/PF SYRINGE 50 mg/10 ml ONE
[2017-03-23] MEDS ORDERED: Lorazepam 2 MG/ML VIAL ONE (18:57)
[2017-03-23 19:17] LABS: #Basophils 0.1 thou/uL (0.0-0.2); #Eosinphils 0.5 thou/uL (0.0-0.7); #Lymphocytes 3.3 thou/uL (1.20-3.40); #Monocytes 0.8 thou/uL (0.11-0.59); #Neutrophils 7.8 thou/uL (1.40-6.50); %Basophils 0.7 % (0.0-1.0); %Eosinophils 3.9 % (0.0-10.0); %Lymphocytes 26.8 % (21.0-51.0); %Neutrophils 62.7 % (42.0-75.0); Hemoglobin 13.4 g/dL (14.0-18.0); Mean Corpuscular HGB CONC 34.6 g/dL (32.0-36.0); Mean Corpuscular Hemoglobin 32.1 pg (27.0-31.0); Mean Corpuscular Volume 92.7 fl (80.0-94.0); Mean Platelet Volume 7.2 fL (7.4-10.4); Platelet Count 263 thou/uL (130-400); RBC Distribution Width 11.5 % (11.5-14.5); Red Blood Cell (RBC) Count 4.17 mill/uL (4.70-6.10); White Blood Cell (WBC) Count 12.5 thou/uL (4.8-10.8)
[2017-03-23 19:31] LABS: INR-International Normal Ratio 1.1; PTT 29.3 SEC (22.9-36.1)
[2017-03-23 19:32] LABS: ALT (SGPT) 21 U/L (8-55); AST (SGOT) 24 U/L (5-34); Albumin 3.8 g/dL (3.4-4.8); Alkaline Phosphatase 89 U/L (40-150); Anion Gap 13 mmol/L (10-20); BUN (Urea Nitrogen) 18 mg/dL (8.4-25.7); Bilirubin, Total 0.6 mg/dL (0.2-1.2); CK (CPK) 94 U/L (30-200); Calc. Creatinine Clearance 0 mL/min (70-130); Calcium 9.2 mg/dL (7.8-10.44); Carbon Dioxide 24 mmol/L (23-31); Chloride 105 mmol/L (98-107); D-Dimer Test 1.34 *mcg/mL (0.27-0.43); Estimated GFR-MDRD 50; Globulin 2.9 g/dL (2.4-3.5); Glucose 163 mg/dL (80-115); Lipase 57 U/L (8-78); Potassium 3.3 mmol/L (3.5-5.1); Protein, Total 6.7 g/dL (5.8-8.1); Sodium 139 mmol/L (136-145)
[2017-03-23 19:37] LABS: Troponin I Less than 0.010 ng/mL (< 0.028)
[2017-03-23] MEDS ORDERED: Fentanyl 100 MCG/2 ML VIAL ONE ×4 (19:49→22:57)
[2017-03-23] MEDS ORDERED: Rocuronium Bromide 50 MG/5 ML VIAL ONE (19:54)
[2017-03-23] MEDS ORDERED: Ondansetron HCl/PF 4 MG/2 ML Vial ONE (20:15)
--- NOTE | 2017-03-23 20:15 | RAD ---
PORTABLE CHEST: History: Chest pain Comparison: 03-11-17 FINDINGS/IMPRESSION: Mild cardiomegaly is stable. Mild vascular engorgement is stable. No acute interval change noted. Pac emaker leads have been placed since prior exam. POS: [facility]
--- NOTE | 2017-03-23 20:24 | CT ---
CT HEAD WITHOUT CONTRAST: Technique: Multiple axial tomograms were obtained through the head without contrast. History: Mental status change. FINDINGS: Ventricles have normal size and position. There is no evidence of intracranial mass or hemorrhage. No evidence of acute infarct. IMPRESSION: No acute abnormality identified. POS: [facility]
[2017-03-23] MEDS ORDERED: HYDROmorphone 0.5 MG/0.5 ML SYRINGE ONE (20:35)
[2017-03-23] MEDS ORDERED: Midazolam HCl 2 mg/2 ml Vial ONE (20:57)
--- NOTE | 2017-03-23 21:09 | CT ---
CT ANGIO CHEST WITH IV ENHANCEMENT: Technique: Multiple axial tomograms were obtained through the chest with angio protocol and multiplan ar reconstructions and 3D post processing. History: Shortness of breath. Chest pain. FINDINGS: Pulmonary arteries show adequate opacification. No evidence of pulmonary embolis identified. The lungs show chronic parenchymal change without evidence of focal infiltrate or effusion. There is a moderate sized pericardial effusion. This may be significant given the recent pacemaker in [facility]. Images through the upper abdomen are unremarkable. IMPRESSION: 1. No evidence of pulmonary embolus. 2. A moderate sized pericardial effusion is present. The density is higher than expected for benign e ffusion and this may represent bloody effusion. Findings relayed to Dr. Nicole. Code CR POS: [facility]
[2017-03-23] MEDS ORDERED: Acetaminophen 325 MG TAB PO PRN (22:52)
[2017-03-23] MEDS ORDERED: CEFAZOLIN 2 GM in Sodium Chloride 0.9% 100 ML IVPB SCH (22:52)
[2017-03-23] MEDS ORDERED: HYDROcodone/Acetaminophen 5/325 mg Tablet PO PRN (22:52)
[2017-03-23] MEDS ORDERED: Ondansetron ODT 4 MG TAB PO PRN (22:52)
[2017-03-23] MEDS ORDERED: CEFAZOLIN/Water 2 GM/20 ML SYRINGE SLOW IVP SCH (23:00)
--- NOTE | 2017-03-23 23:00 | RAD ---
TWO VIEW CHEST: Technique: An AP portable and portable lateral view obtained in CCU. History: Post op pericardial window. FINDINGS: The lateral view is nondiagnostic. Cardiomegaly is again noted on the frontal view. There is opacification of the right lung base, new f rom the CT performed at 7:20 p.m. Possible atelectasis. I cannot exclude air under the right hemidiap hragm although this is poorly evaluated. Upper lung arroyo appear clear. No pneumothorax is identifie d. IMPRESSION: Lateral view is nondiagnostic. Cardiomegaly. Opacification in both lung bases obscures both CP angles . Lucency in the right lung base has the appearance of air under the right hemidiaphragm although thi s probably represents opacification of the right lung base. Recommend close follow up. POS: [facility]
[2017-03-23] MEDS ORDERED: Promethazine HCl 25 MG/ML VIAL IM PRN (23:03)
[2017-03-23] MEDS ORDERED: Promethazine HCl 25 MG/ML VIAL SLOW IVP PRN (23:03)
[2017-03-23] MEDS ORDERED: Ondansetron HCl/PF 4 MG/2 ML Vial IVP PRN (23:03)
[2017-03-23 23:44] VITALS: BMI 34.7
[2017-03-23] MEDS: HYDROcodone/Acetaminophen 5/325 mg Tablet PO PRN (23:49)
[2017-03-24] MEDS: Sodium Chloride 0.9% 1,000 ML IV SCH ×2 (00:02→02:57)
[2017-03-24] MEDS: Morphine 4 MG/ML Carpuject SLOW IVP PRN ×2 (00:46→03:00)
[2017-03-24] MEDS ORDERED: Meclizine HCl 12.5 MG TAB PO PRN (00:48)
--- NOTE | 2017-03-24 01:03 | OP ---
PREOPERATIVE DIAGNOSIS: Pericardial tamponade. PROCEDURE: Pericardial window. SURGEON: Doug Centeno M.D. ANESTHESIA: General endotracheal. PROCEDURE: After adequate anesthesia had been obtained, the patient was prepped and draped. An inci mario was made at the level of the xiphoid process, carried down through the fascia and using blunt di ssection, the diaphragm was identified and coagulated down to the pericardium, which was then opened. A 500 mL of bloody nonclotting blood was evacuated. The area was irrigated and then a 24 Keven marilu in was placed through a separate stab incision. Fascia was closed with Vicryl interrupted figure-of- eight sutures, subcutaneous tissue and skin were closed in layers and the patient is to be taken to [facility] recovery room in guarded condition.
[2017-03-24 04:19] LABS: #Lymphocytes 0.5 thou/uL (1.20-3.40); #Neutrophils 15.9 thou/uL (1.40-6.50); %Eosinophils 0.1 % (0.0-10.0); %Lymphocytes 3.1 % (21.0-51.0); %Monocytes 5.9 % (0.0-10.0); %Neutrophils 90.8 % (42.0-75.0); Hemoglobin 13.2 g/dL (14.0-18.0); Mean Corpuscular HGB CONC 34.1 g/dL (32.0-36.0); Mean Corpuscular Hemoglobin 31.9 pg (27.0-31.0); Mean Corpuscular Volume 93.4 fl (80.0-94.0); Mean Platelet Volume 7.1 fL (7.4-10.4); Platelet Count 229 thou/uL (130-400); RBC Distribution Width 11.6 % (11.5-14.5); Red Blood Cell (RBC) Count 4.13 mill/uL (4.70-6.10); White Blood Cell (WBC) Count 17.5 thou/uL (4.8-10.8)
[2017-03-24] MEDS: HYDROcodone/Acetaminophen 5/325 mg Tablet PO PRN ×3 (04:22→12:42)
[2017-03-24] MEDS: CEFAZOLIN/Water 2 GM/20 ML SYRINGE SLOW IVP SCH ×2 (04:23→12:43)
[2017-03-24 04:39] LABS: Anion Gap 12 mmol/L (10-20); BUN (Urea Nitrogen) 18 mg/dL (8.4-25.7); Calc. Creatinine Clearance 125 mL/min (70-130); Calcium 9.1 mg/dL (7.8-10.44); Carbon Dioxide 24 mmol/L (23-31); Chloride 108 mmol/L (98-107); Estimated GFR-MDRD 77; Glucose 131 mg/dL (80-115); Phosphorus 3.3 mg/dL (2.3-4.7); Potassium 4.5 mmol/L (3.5-5.1); Sodium 139 mmol/L (136-145)
--- NOTE | 2017-03-24 06:06 | CON ---
DATE OF CONSULTATION: 03/23/2017 HISTORY OF PRESENT ILLNESS: This is a 61-year-old gentleman who was discharged from the hospital on 03/19/2017 after having been admitted with some nausea and vomiting. He was found to have cerebellar and cerebral infarcts. He was also found to have some thought to have viral gastroenteritis. His E KG showed some ST elevations. Cardiac echo was performed looking for possible embolic source in his heart. He was seen in consultation by Dr. Schultz who felt that he had Brugada syndrome. Ultimately, h jv had a defibrillator placed. He has been complaining of chest pain and dyspnea for the past 24 hour s and was brought to the hospital. He was hypotensive, when 911 arrived in the 70 to 80 range, respo nded to fluids and then decreased to pressure again and then again responded to fluids. A CT scan of his chest demonstrated pericardial effusion that was not present on his previous admission. PHYSICAL EXAMINATION: VITAL SIGNS: He is currently on BiPAP with a blood pressure of 130, heart rate of 80. NECK: In supine does reveal some jugular venous distention. LUNGS: Clear to auscultation. CARDIAC: Exam reveals no murmurs with distant heart sounds. ABDOMEN: Soft and nontender. EXTREMITIES: Without edema with palpable pedal pulses bilaterally and radial pulses. PLAN: At this time is for pericardial window for probable lead perforation. The patient has been on no anticoagulants and his says that only takes his blood pressure pill and cholesterol medicati on with Norvasc 5 mg a day, aspirin 81 a day, and atorvastatin 40 a day being his medications.
--- NOTE | 2017-03-24 06:30 | CON-2 ---
DATE OF ADMISSION: 03/23/2017 DATE OF CONSULTATION: 03/24/2017 CODE STATUS: FULL. PRIMARY CARE PHYSICIAN: [facility]. ATTENDING: Vinod Beckham MD RESIDENT: Kaycee Wilkes MD HISTORIAN: Patient and . CHIEF COMPLAINT: Shortness of breath/chest pain. HISTORY OF PRESENT ILLNESS: This is a 61-year-old male with a recent hospital admission for a CVA secondary to Brugada syndrome, status post pacer and an AICD placement, presents with 1-day hi story of shortness of breath and chest pain described as pressure. The patient was recently discharg ed from the hospital on Thursday and was feeling well over the weekend. He reports that he developed a cute shortness of breath and chest pain on Thursday, which worsened Thursday. He called EMS due to this change in status and was brought in via EMS to the ER. He also complained of orthopnea and paroxysma l nocturnal dyspnea. On arrival to the ED, he was hypotensive and had two seizure episodes. He was found to have pericardial tamponade and Cardiovascular Surgery was contacted in the ER and we were as ked to provide assistance in management for the patient's medical conditions. The patient was recent ly on our service just last week. The patient was brought in via EMS on a nonrebreather and was muñiz sitioned to BiPAP. In the ER, his initial blood pressure was 74/64 with a pulse of 96, respiratory r ate of 19. States that he was initially brought into the ER, satting on 100% on 4 liters of oxygen w hich was transitioned to a nonrebreather and then BiPAP. He was persistently hypotensive in the ER, ranging in the 70s to 80s systolic over 60s. He initially was hypoxic at 79% on 4 liters of O2, whic h is what I initially transitioned to BiPAP. In the ER, he was given 8 mg of Zofran IV, 1000 mL of n ormal saline, and 100 mcg of fentanyl. He was also given 324 mg of aspirin in the EMS on the way to the hospital. PAST MEDICAL HISTORY: 1. Recent cerebrovascular accident involving multiple infarcts, the largest in the right cerebellum. 2. Brugada syndrome, status post AICD/pacemaker placement last week. 3. Hypertension. PAST SURGICAL HISTORY: 1. AICD/pacemaker placed on 03/18/2017. 2. Lithotripsy. 3. Right inguinal hernia repair. ALLERGIES: No known drug allergies. MEDICATIONS: 1. Amlodipine 5 mg daily. 2. Aspirin 81 mg daily. 3. Atorvastatin 40 mg daily. 4. Tylenol No.3 as needed. 5. Meclizine as needed. FAMILY HISTORY: None. SOCIAL HISTORY: Denies tobacco and drug use. Endorses prior alcohol use, but he quit 17 years ago. REVIEW OF SYSTEMS: General: No fevers or chills. Eyes: No vision changes or eye pain. ENT: No n kilo congestion or rhinorrhea. Respiratory: Endorses cough and shortness of breath. Cardiovascular : Endorses chest pain, paroxysmal nocturnal dyspnea, and orthopnea. Gastrointestinal: Endorses kameron e nausea and vomiting. Denies diarrhea, constipation, or abdominal pain. Genitourinary: Denies inc ontinence or dysuria. Skin: Denies rashes and lesions. Musculoskeletal: Denies pain or tenderness . Neurologic: Denies weakness or numbness. Psychiatric: Denies anxiety or depression. PHYSICAL EXAMINATION: VITAL SIGNS: Initially hypoxic at 79% on 4 liters of oxygen transitioned to BiPAP. Patient was on B iPAP when we saw him, IPAP 12, EPAP 6, rate of 10, blood pressure ranging in the 70s to 80s systolic over 60s diastolic, pulse 79-96, initially tachycardic in the EMS up to 108, respiratory rate 22, T-m ax 98.5. GENERAL: Alert and oriented x4. Mildly ill appearing on BiPAP, but appropriately interactive. EYES: PERRLA, EOMI. ENT: Nasal mucosa and oropharynx within normal limits. NECK: Supple with mild JVD. CARDIOVASCULAR: Distant S2. No murmur, rub, or gallop. RESPIRATORY: Clear to auscultation bilaterally. No retractions. Normal effort. ABDOMEN: Soft, nontender to palpation. Bowel sounds in all 4 quadrants. EXTREMITIES: No clubbing or cyanosis or edema. MUSCULOSKELETAL: Structure within normal limits. NEUROLOGIC: No focal deficits. GCS 15. PSYCHIATRIC: Appropriate. LABORATORY AND DIAGNOSTIC DATA: 1. CBC: 12.5, 13.4, 38.7, 263,000. 2. CMP: 139, 3.3, 105, 204, 18, 1.43, 163. 3. GFR 50. 4. AST, ALT, alkaline phosphatase 24, 21, 89. 5. Calcium, total protein, albumin, 9.26, 6.7, 3.8. 6. Total bilirubin 0.6. 7. Lipase 57, BNP 18, CK-MB 2. Troponin negative. CK 94. 8. PT 14, PTT 29.3, and INR 1.1. D-dimer 1.34. Prolactin 61.76. 9. EKG sinus tachycardia. 10. Chest x-ray, boot-shaped heart, wide mediastinum. 11. CTA chest, moderate pericardial effusion. 12. CT brain, no acute intracranial hemorrhage or mass. ASSESSMENT AND PLAN: This is a 61-year-old male with a past medical history of recent cerebrovascula r accident secondary to Brugada syndrome with AICD and pacemaker placement, presents with 1-day histo ry of shortness of breath and chest pain, admitted to the Cardiovascular Service for acute hypoxic re spiratory failure secondary to pericardial tamponade. 1. Acute hypoxic respiratory failure secondary pericardial tamponade. The patient was taken to the OR by CV Surgery. He will be admitted after that to the ICU. Additional CV Surgery. The patient wa s taken to the OR for tonight by CV Surgery for pericardial window and further recommendations via CV Surgery are pending at this time. The Family Medicine Service is happy to assist in management of t he patient's comorbid conditions. 2. New onset seizure. This is likely secondary to hypotension. Patient's prolactin was elevated. CT of the head was completed that ruled out intracranial bleed or a new mass. He did recently have a cerebrovascular accident. We will check magnesium, phosphate, now as well as in the morning with th e patient's BMP to rule out electrolyte causes as well as metabolic causes. We will consider an EEG/ neurology consult if patient has continued seizures. 3. Recent right cerebellar cerebrovascular accident. Recommend holding anticoagulation. At this ti me, we will follow recommendations based on CV Surgery. 4. Acute kidney injury. The patient has a creatinine of 1.43. No prior documented diagnosis of chr onic kidney disease and a prior baseline creatinine of 0.7. We will provide a low rate of fluids at 75 mL an hour of normal saline and continue to monitor. 5. Patient has a normocytic anemia. We will recheck his labs in the morning and monitor. 6. Brugada syndrome. We would recommend consulting Dr. Marion in the morning. The patient is now sta tus post AICD and pacemaker placement. 7. Hypertension. We will hold his home prescriptions right now due to his hypotension. 8. Deep venous thrombosis prophylaxis. We will recommend SCDs pending clearance by CV Surgery. 9. Leukocytosis that we think this is reactive secondary to #1. We will continue to monitor. DISPOSITION AND LENGTH OF HOSPITAL STAY: 2-3 days. Symptomatic medication will be provided. History and physical exam as well as management discussed with Dr. Beckham.
--- NOTE | 2017-03-24 08:42 | PDOC.FM ---
- Subjective Subjective: Patient awake and alert this morning, no complaints at this time. He is POD #1 from pericardial window. BP well controlled with appropriate MAPs - Objective MAR Reviewed: Yes Vital Signs & Weight: Vital Signs (12 hours) Temp Pulse Resp Pulse Ox 03/24/17 02:08 92 03/23/17 23:47 89 98 03/23/17 23:05 97.6 F 82 25 H 99 Weight Admit Weight 113 kg Weight 113 kg Most Recent Monitor Data Heart Rate from ECG 95 NIBP 134/83 NIBP BP-Mean 96 Respiration from ECG 23 SpO2 97 I&O: 03/23/17 03/24/17 03/25/17 06:59 06:59 06:59 Intake Total 1819 Output Total 820 Balance 999 Result Diagrams: 03/24/17 03:58 03/24/17 03:58 <Jose Reynolds - Last Filed: 03/24/17 08:40> - Objective Vital Signs & Weight: Vital Signs (12 hours) Temp Pulse BP 03/24/17 11:00 98.7 F 03/24/17 10:35 94 109/73 03/24/17 08:00 98.3 F 03/24/17 02:08 92 Weight Admit Weight 113 kg Weight 113 kg Most Recent Monitor Data Heart Rate from ECG 101 NIBP 109/73 NIBP BP-Mean 89 Respiration from ECG 21 SpO2 93 I&O: 03/23/17 03/24/17 03/25/17 06:59 06:59 06:59 Intake Total 1819 450 Output Total 820 Balance 999 450 Result Diagrams: 03/24/17 03:58 03/24/17 03:58 <Rivera Dinh - Last Filed: 03/24/17 12:00> Phys Exam - Physical Examination Constitutional: NAD HEENT: moist MMs Respiratory: no wheezing, no rales Cardiovascular: RRR, no significant murmur Gastrointestinal: soft, non-tender Neurological: moves all 4 limbs Psychiatric: normal affect, A&O x 3 <Jose Reynolds - Last Filed: 03/24/17 08:40> Dx/Plan (1) Cardiac tamponade Code(s): I31.4 - CARDIAC TAMPONADE Status: Acute Plan: POD #1 from pericardial window Chest tube with 200cc output this AM CV surgery managing (2) Seizure Code(s): R56.9 - UNSPECIFIED CONVULSIONS Status: Acute Plan: prolactin of 62 no clear etiology at this time no metabolic abnormalities this AM (3) Brugada syndrome Code(s): I49.8 - OTHER SPECIFIED CARDIAC ARRHYTHMIAS Status: Chronic Plan: Recent diagnosis during last hospitalization s/p ICD placement by EP, who has been consulted again this admission (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 Reynolds. I agree with and repeated the History, Examination, Assessment and Plan documented above with any addition or exceptions noted below. Doing well this AM. Some CP with the pericardial tube. No sob/n/v/f/c. Await cards recs. Will follow. <Rivera Dinh - Last Filed: 03/24/17 12:00>
[2017-03-24] MEDS ORDERED: Enoxaparin Sodium 40 MG/0.4 ML SYRINGE SC SCH (09:00)
[2017-03-24] MEDS: Amlodipine 5 MG TAB PO SCH (10:35)
[2017-03-24] MEDS: Docusate 100 MG CAP PO SCH ×2 (10:36→20:50)
[2017-03-24] MEDS: Famotidine 20 MG TAB PO SCH ×2 (10:36→20:49)
[2017-03-24] MEDS: Aspirin 81 mg Enteric Coated Tablet PO SCH (10:36)
[2017-03-24] MEDS ORDERED: Atorvastatin Calcium 40 MG TAB PO SCH (21:00)
[2017-03-25] MEDS: HYDROcodone/Acetaminophen 5/325 mg Tablet PO PRN (01:27)
--- NOTE | 2017-03-25 02:51 | HP ---
DATE OF SERVICE: 03/24/2017 REFERRING PHYSICIAN: Doug Centeno M.D. I am seeing Mr. Gasca at our 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 His problems are: 1. Current admission with hypertension, pericardial tamponade requiring pericardial window placement , currently stable hemodynamically. 2. History of recurrent seizures on admission. 3. History of Brugada syndrome. A. Presentation on 03/11 with typical Brugada like EKG after an episode of syncope as well as nonsust ained VT on telemetry prompted a dual chamber ICD implantation on 03/18/2017. 4. No evidence of significant structural heart disease by left heart catheterization on 03/18/2017 d emonstrating 6% LVEF, 20% RCA stenosis only. 5. Presentation with possible stroke-like symptoms also in 03/11/2017 with MRI of brain showing acut e right cerebellar ischemic infarct. 6. History of hypertension and hyperlipidemia. ALLERGIES: None noted. MEDICATIONS AT HOME: Included Tylenol with codeine, Norvasc, aspirin, Lipitor, cephalexin, meclizine . SUBJECTIVE: Mr. Gasca is here with some developing progressive chest tightness, dyspnea, orthopnea , hypertension which started about 4 days after his discharge from the hospital. He was quickly dete cted to have a moderate size pericardial effusion by chest CT and subsequently Dr. Centeno was consulte d for and placed a pericardial window. He still has a chest tube in but his symptoms are otherwise c ompletely resolved, now transferred from ICU to telemetry floor. He has no further symptoms at this time. The ICD insertion site is otherwise healing well. OBJECTIVE DATA: VITAL SIGNS: The blood pressure 132/87, heart rate 98, respirations 18, temperature 98.5 degrees Fah renheit. GENERAL: He is alert and oriented man in no apparent distress. NECK: Supple. Jugular veins are not distended. CHEST: Coarse without crackles. CARDIOVASCULAR: Heart sounds are regular to rate and rhythm. No murmur or gallop. ABDOMEN: Benign. Bowel sounds positive. EXTREMITIES: Lower extremities without edema, clubbing or cyanosis. Pulses are adequate. NEUROLOGIC: The patient is nonfocal. MUSCULOSKELETAL: No joint swelling or deformities. SKIN: Without rash. Subxiphoid chest tube insertion site is in bandages and left precordial ICD ins ertion site is well healed. DATABASE DATA: White count 17.5, hemoglobin 13.2, platelet count is 229. INR 1.1. Sodium 139, pota ssium 4.5, BUN is 18, creatinine 0.99. The ICD interrogation reveals adequate functioning dual chamb er ICD, slight increase in right atrial thresholds are seen from implant, otherwise unchanged. No ve ntricular arrhythmia events associated with seizures are documented. ASSESSMENT AND PLAN: Mr. Gasca is a 61-year-old man with presentation with stroke-like symptoms an d syncope about 10 days ago, typical EKG appearance of Brugada syndrome as well as nonsustained VT an d a syncope prompted us to place a dual chamber ICD. He also has history of atrial lead and stroke f or monitoring his atrial rhythm. He was discharged on the 1st and for 3 days was doing fine, but then he developed progressive hyperte nsion and he was found to be in tamponade. He underwent a window placement since his symptoms better . He had a seizure, possibly associated with the history of stroke and hypertension. At this point, I find him stable. Management of the chest tube as per Dr. Centeno. We monitored the I CD function, so far adequate. If further bleeding occurs, consider lead repositioning. For now, I d o not find that is necessary. We will follow with you. I discussed the wishes of the patient and th e . Thank you again for allowing me to participate in the care of this patient.
--- NOTE | 2017-03-25 02:55 | CON ---
DATE OF CONSULTATION: 03/24/2017 HISTORY OF PRESENT ILLNESS: Mr. Gasca is a 61-year-old male. He says his went out to run an errand last night and while she was gone he started to having chest discomfort. He tried to lie down and got worse. He then stood up , it got worse. He then presented to the emergency department. A CT scan of his chest done in the emergency department showed a large pericardial effusion. Dr. Centeno was consulted. He subsequently went to the OR for a pericardial window. It is felt that there may have been an inadvertent chamber perforation with lead placement for defibrillator. He had 500 mL of non clotting blood evacuated. He was admitted to the Critical Care Unit. We were consulted because of his presence in the unit. Past medical history is remarkable for recent hospitalization and was hospitalized 03/19/2017 to 03/20/2017 for CVA, Brugada syndrome, nonsustained ventricular tachycardia and hypertension. He says he is feeling well at this point in time. PAST MEDICAL HISTORY: 1. Remarkable for recent admission with a cerebellar stroke, multiple emboli on CT angiogram. 2. History of diastolic dysfunction with a normal ejection fraction. 3. History of Brugada syndrome. 4. History of nonsustained ventricular tachycardia. 5. Status post internal defibrillator placement on 03/18/2017. 6. Nonoperative coronary artery disease with 30% right coronary lesion. 7. History of hypertension. 8. He has a history of lithotripsy. 9. He has a history of an inguinal herniorrhaphy. FAMILY HISTORY: Negative for lung disease at an early age. ALLERGIES: He has no drug allergies. SOCIAL HISTORY: He is a nonsmoker, nondrinker. He does not use drugs. REVIEW OF SYSTEMS: A 10-point is otherwise negative. He has minimal chest discomfort at this time. PHYSICAL EXAMINATION: VITAL SIGNS: He is afebrile, heart rate 90, respiratory rate is 18, oximetry is 92 on room air, blood pressure 132/87. HEENT: Pupils are equal. Sclerae is anicteric. NECK: Supple. No lymphadenopathy. LUNGS: Clear. HEART: Regular rhythm. S1 and S2 are normal. ABDOMEN: Soft and nontender. EXTREMITIES: Without clubbing, cyanosis or edema. IMPRESSION: Status post pericardial window for a large bloody effusion. PLAN: Continue current management, catheter drainage. Continue cardiac monitoring. Activity will gradually be increased. This is a 50 minutes. Consult greater than 50% of the time was spent on the unit coordinating care with the staff, discussing care with the patient. ROMAN
--- NOTE | 2017-03-25 06:41 | DIS ---
HOSPITAL COURSE: The patient was brought to the emergency room on 03/23/2017 in the evening where he was found to have pericardial tamponade. He was taken to the operating room where he underwent a pe ricardial window with drainage of 500 mL of blood. Postoperatively, he did well with stable vital si gns. He had minimal serous output and his tubes were removed on 03/25/2017 and he is to be discharge d home to resume his home medications. Discharge and follow up instructions were given.
[2017-03-25 07:42] VITALS: BP 152/84; TEMP 98.4
[2017-03-25] MEDS: Docusate 100 MG CAP PO SCH (08:42)
[2017-03-25] MEDS: Aspirin 81 mg Enteric Coated Tablet PO SCH (08:42)
[2017-03-25] MEDS: Amlodipine 5 MG TAB PO SCH (08:42)
[2017-03-25] MEDS: Famotidine 20 MG TAB PO SCH (08:43)
--- NOTE | 2017-03-25 21:12 | PRG ---
DATE OF SERVICE: 03/25/2017 ELECTROPHYSIOLOGY FOLLOWUP NOTE SUBJECTIVE: Mr. Gasca is doing well. His chest tube is out. He remains hemodynamically stable. OBJECTIVE: VITAL SIGNS: Blood pressure 152/84, heart rate 102, respirations 18, temperature 98.4 degrees Fahren heit. GENERAL: He is alert and oriented man, in no apparent distress. NECK: Supple. Jugular veins not distended. CHEST: Coarse without crackles. CARDIOVASCULAR: Heart sounds are regular rate and rhythm. No murmur or gallop. ABDOMEN: Benign. Bowel sounds positive. EXTREMITIES: Lower extremities without edema, clubbing, or cyanosis. Left precordial ICD insertion site is unchanged. LABORATORY DATA: None new today. Interrogation of his ICD reveals adequately functioning dual chamb er ICD. Atrial pacing thresholds are still reasonable at 1.75 volts. Impedance is normal range. No ventricular arrhythmias or atrial arrhythmias are seen. ASSESSMENT AND PLAN: Mr. Gasca is a 61-year-old man with history of syncope Brugada type EKG, nons ustained VT, status post ICD implantation. He was readmitted with hypertension, found to have bloody pericardial effusion which was drained by Dr. Centeno. He tolerated the procedure well. Now chest tu be is out. He remains hemodynamically stable. ICD otherwise is functioning well. For now, continue monitoring. Routine follow up requested in our office for wound check. Please continue the antibio tic as well. Thank you again for allowing me to participate in the care of this patient.
--- NOTE | 2017-05-02 12:24 | EKG ---
Test Reason : Blood Pressure : / mmHG Vent. Rate : 083 BPM Atrial Rate : 288 BPM P-R Int : 000 ms QRS Dur : 090 ms QT Int : 370 ms P-R-T Axes : 000 029 110 degrees QTc Int : 434 ms Accelerated Junctional rhythm Nonspecific T wave abnormality Abnormal ECG Confirmed by JASON JIMENEZ, NANNETTE ([id number]), editorial intern [employer] BRADFORD ([id number]) on 05/02/2017 12:23:37 PM Referred By: Confirmed By:NANNETTE GOMEZ MD
--- NOTE | 2017-05-02 12:24 | EKG ---
Test Reason : Blood Pressure : / mmHG Vent. Rate : 091 BPM Atrial Rate : 091 BPM P-R Int : 138 ms QRS Dur : 094 ms QT Int : 382 ms P-R-T Axes : 042 034 062 degrees QTc Int : 469 ms Normal sinus rhythm Normal ECG Confirmed by JASON JIMENEZ, NANNETTE ([id number]), publications editor [employer] BRADFORD ([id number]) on 05/02/2017 12:23:38 PM Referred By: Confirmed By:NANNETTE GOMEZ MD
== END 2017-03-25 09:58 | disposition home or self-care (01) | DRG 270 ==
LOC: ERS 18:40 → CCU 20:59 → SDC/OP 21:59 → CCU 22:15 → 2SE 03-24 15:25
PROVIDERS: ADMIT Thoracic Surgery (Cardiothoracic Vascular Surgery); ATTEND Thoracic Surgery (Cardiothoracic Vascular Surgery)
PROC: 5A09357 Assistance with Respiratory Ventilation, Less than 24 Consecutive Hours, Continuous Positive Airway Pressure (ICD-10-PCS; 2017-03-23)
PROC: 0W9D00Z Drainage of Pericardial Cavity with Drainage Device, Open Approach (ICD-10-PCS; principal; 2017-03-24)
DX: T82.190A Other mechanical complication of cardiac electrode, initial encounter (principal); J96.01 Acute respiratory failure with hypoxia; I31.4 Cardiac tamponade; N17.9 Acute kidney failure, unspecified; I31.3 Pericardial effusion (noninflammatory); Y71.3 Surgical instruments, materials and cardiovascular devices (including sutures) associated with adverse incidents; I10 Essential (primary) hypertension; G40.909 Epilepsy, unspecified, not intractable, without status epilepticus; I49.8 Other specified cardiac arrhythmias; Z95.810 Presence of automatic (implantable) cardiac defibrillator; Z86.73 Personal history of transient ischemic attack (TIA), and cerebral infarction without residual deficits; E78.5 Hyperlipidemia, unspecified; D64.9 Anemia, unspecified
CPT/HCPCS: 36415; 70450; 71045; 71046; 71275; 80048; 80053; 82550; 82553; 83690; 83735; 83880; 84100; 84146; 84484; 85025; 85379; 85610; 85730; 86850; 86900; 86901; 93005; 94660; 96374; 96375; J1170; J2001; J2060; J2250; J2270; J2405; J2704; J3010

== ENCOUNTER 2017-04-30 10:28 | Emergency (ER) | payer OTHER, SELFPAY ==
[2017-04-30 10:56] LABS: #Basophils 0.2 thou/uL (0.0-0.2); #Eosinphils 0.5 thou/uL (0.0-0.7); #Lymphocytes 1.5 thou/uL (1.20-3.40); #Monocytes 0.5 thou/uL (0.11-0.59); #Neutrophils 3.4 thou/uL (1.40-6.50); %Basophils 2.5 % (0.0-1.0); %Eosinophils 8.4 % (0.0-10.0); %Lymphocytes 24.9 % (21.0-51.0); %Monocytes 8.1 % (0.0-10.0); %Neutrophils 56.2 % (42.0-75.0); Hemoglobin 13.4 g/dL (14.0-18.0); Mean Corpuscular HGB CONC 33.7 g/dL (32.0-36.0); Mean Corpuscular Hemoglobin 31.1 pg (27.0-31.0); Mean Corpuscular Volume 92.3 fl (80.0-94.0); Mean Platelet Volume 6.5 fL (7.4-10.4); Platelet Count 275 thou/uL (130-400); RBC Distribution Width 11.9 % (11.5-14.5); Red Blood Cell (RBC) Count 4.29 mill/uL (4.70-6.10); White Blood Cell (WBC) Count 6.1 thou/uL (4.8-10.8)
[2017-04-30 11:17] LABS: ALT (SGPT) 20 U/L (8-55); AST (SGOT) 21 U/L (5-34); Alkaline Phosphatase 82 U/L (40-150); Anion Gap 11 mmol/L (10-20); BUN (Urea Nitrogen) 15 mg/dL (8.4-25.7); Bilirubin, Total 0.6 mg/dL (0.2-1.2); Calc. Creatinine Clearance 0 mL/min (70-130); Calcium 9.4 mg/dL (7.8-10.44); Carbon Dioxide 27 mmol/L (23-31); Chloride 106 mmol/L (98-107); Estimated GFR-MDRD Greater than 90; Globulin 3.2 g/dL (2.4-3.5); Glucose 112 mg/dL (80-115); Protein, Total 7.2 g/dL (5.8-8.1); Sodium 140 mmol/L (136-145)
== END 2017-04-30 14:11 | disposition home or self-care (01) ==
LOC: ERS 10:28
DX: T81.4XXA Infection following a procedure, initial encounter (principal); Z86.73 Personal history of transient ischemic attack (TIA), and cerebral infarction without residual deficits; E78.00 Pure hypercholesterolemia, unspecified
CPT/HCPCS: 36415; 80053; 85025; 87070; 87077; 87186; 87205; 99283